=== PATIENT | female | born 1960 | race Caucasian/White ===

== ENCOUNTER → 2018-01-07 | Outpatient (CLI) | payer OTHER | END | disposition home or self-care (01) | LOC: RAD 17:18 | PROVIDERS: ATTEND Nurse Practitioner Family | DX: M79.605 Pain in left leg (principal); R60.0 Localized edema; M79.89 Other specified soft tissue disorders ==

== ENCOUNTER 2018-05-07 11:54 | Emergency (ER) | payer SELFPAY ==
[~2018-05-07] VITALS: Ht 167.6 cm; Wt 85.0 kg
[~2018-05-07 11:54] MED LIST: DICL50TA4 PO; ERGO500017 PO; ESTR0.5T PO; FURO20TA3 PO; IBUP-1222 PO; KETO10TA PO; LACT10SO5 PO; MEDR2.5T30 PO; MIRT30TA6 PO; MODA200T2 PO; MULT1TAB60 PO; ONDA4TAB10 PO; OXYC15TA PO; PANT40TA5 PO; PARO40TA3 PO; POTA10TA6 PO; ROPI0.5T PO; TIZA4CAP PO; TOPI50TA8 PO
[2018-05-07 12:37] LABS: BASOPHILS # (AUTO) 0.01 x10^3/uL (0-0.1); BASOPHILS % (AUTO) 0 % (0-1); EOSINOPHILS # (AUTO) 0.08 x10^3/uL (0-0.4); EOSINOPHILS % (AUTO) 2 % (1-7); LYMPHOCYTES # (AUTO) 1.58 x10^3/uL (1-3.4); LYMPHOCYTES % (AUTO) 29 % (22-44); MD NO; MEAN CORPUSCULAR HEMOGLOBIN 32.9 pg (27.0-34.8); MEAN CORPUSCULAR HGB CONC 32.9 g/dL (32.4-35.8); MEAN PLATELET VOLUME 7.8 fL (7.4-10.4); MONOCYTES # (AUTO) 0.41 x10^3/uL (0.2-0.8); MONOCYTES % (AUTO) 8 % (2-9); NEUTROPHILS # (AUTO) 3.32 x10^3/uL (1.8-6.8); NEUTROPHILS % (AUTO) 62 % (42-75); PLATELET COUNT 266 x10^3/uL (130-400); RED BLOOD COUNT 3.25 x10^6/uL (3.82-5.3); RED CELL DISTRIBUTION WIDTH 20.9 % (9.6-15.2)
[2018-05-07 12:43] LABS: INTERNATIONAL NORMALIZED RATIO 1.29 (0.93-1.1); PROTHROMBIN TIME 13.2 Seconds (9.6-11.5)
[2018-05-07 12:47] LABS: ALANINE AMINOTRANSFERASE 21 U/L (12-78); ALBUMIN 1.8 g/dL (3.4-5.0); ANION GAP 6 mmol/L (5-15); CALCIUM 7.6 mg/dL (8.5-10.1); CHLORIDE 102 mmol/L (98-107); CREATININE 0.85 mg/dL (0.55-1.02)
[2018-05-07 12:51] LABS: ALKALINE PHOSPHATASE 350 U/L (45-117); BILIRUBIN,TOTAL 0.9 mg/dL (0.2-1.0); TOTAL PROTEIN 6.2 g/dL (6.4-8.2)
[2018-05-07] MEDS ORDERED: LIDOCAINE 2%, 10ML ONE (15:38)
[2018-05-07 15:59] VITALS: BP 120/68
== END 2018-05-07 16:45 | disposition home or self-care (01) ==
LOC: ED 14:19
DX: B18.2 Chronic viral hepatitis C (principal); K70.31 Alcoholic cirrhosis of liver with ascites; K70.11 Alcoholic hepatitis with ascites; Z88.5 Allergy status to narcotic agent; Z88.6 Allergy status to analgesic agent
CPT/HCPCS: 36415; 49083; 80053; 83880; 85025; 85610; 88112; 93005; 99285; J3490

== ENCOUNTER → 2018-05-24 | Outpatient (CLI) | payer OTHER ==
[~2018-05-24] MED LIST changes: +LIDOCAINE-MPF 1%, 2ML ONE
== END | disposition home or self-care (01) ==
LOC: RAD 14:00
PROVIDERS: ATTEND Internal Medicine
DX: K70.31 Alcoholic cirrhosis of liver with ascites (principal); E11.9 Type 2 diabetes mellitus without complications; Z87.891 Personal history of nicotine dependence; Z88.6 Allergy status to analgesic agent; Z88.5 Allergy status to narcotic agent; Z86.19 Personal history of other infectious and parasitic diseases
CPT/HCPCS: 49083; J3490

== ENCOUNTER 2018-06-09 16:23 | Inpatient (IN) | payer OTHER ==
[~2018-06-09] VITALS: Ht 170.2 cm; Wt 60.1 kg
[~2018-06-09 16:23] MED LIST changes: -LIDOCAINE-MPF 1%, 2ML ONE
[2018-06-09] MEDS ORDERED: ZIPRASIDONE 20 MG INJ IM ONE ×2 (16:35→17:00)
[2018-06-09] MEDS ORDERED: LORazepam 2 MG/ML, 1ML ONE (17:14)
[2018-06-09] MEDS ORDERED: LORazepam 2 MG/ML, 1ML IVPush ONE (18:00)
[2018-06-09] MEDS ORDERED: SODIUM CHLORIDE FLUSH 10ML SYR IVF ONE (18:00)
[2018-06-09 18:11] LABS: BASOPHILS # (AUTO) 0.02 x10^3/uL (0-0.1); BASOPHILS % (AUTO) 0 % (0-1); EOSINOPHILS % (AUTO) 0 % (1-7); LYMPHOCYTES # (AUTO) 0.75 x10^3/uL (1-3.4); LYMPHOCYTES % (AUTO) 12 % (22-44); MD NO; MEAN CORPUSCULAR HEMOGLOBIN 31.8 pg (27.0-34.8); MEAN CORPUSCULAR HGB CONC 32.6 g/dL (32.4-35.8); MEAN CORPUSCULAR VOLUME 97.7 fL (80-100); MEAN PLATELET VOLUME 8.5 fL (7.4-10.4); MONOCYTES # (AUTO) 0.22 x10^3/uL (0.2-0.8); MONOCYTES % (AUTO) 4 % (2-9); NEUTROPHILS # (AUTO) 5.22 x10^3/uL (1.8-6.8); NEUTROPHILS % (AUTO) 84 % (42-75); PLATELET COUNT 187 x10^3/uL (130-400); RED CELL DISTRIBUTION WIDTH 16.6 % (9.6-15.2)
[2018-06-09 18:17] LABS: ALANINE AMINOTRANSFERASE 35 U/L (12-78); ALBUMIN 2.8 g/dL (3.4-5.0); ANION GAP 9 mmol/L (5-15); CALCIUM 7.9 mg/dL (8.5-10.1); CHLORIDE 115 mmol/L (98-107); CREATININE 0.88 mg/dL (0.55-1.02)
[2018-06-09 18:22] LABS: ALKALINE PHOSPHATASE 331 U/L (45-117); BILIRUBIN,TOTAL 1.9 mg/dL (0.2-1.0); TOTAL PROTEIN 7.4 g/dL (6.4-8.2); TROPONIN I < 0.015 ng/mL (0.000-0.045)
[2018-06-09 18:26] LABS: ACETAMINOPHEN < 2 mcg/mL (10-30); SALICYLATE LEVEL < 1.7 mg/dL (2.8-20.0)
[2018-06-09] MEDS: LACTULOSE 20 GM/30 ML UDC PO SCH ×2 (18:54→21:00)
[2018-06-09] MEDS ORDERED: POTASSIUM CHLORIDE 20 MEQ TAB.ER.PRT PO ONE (19:00)
[2018-06-09] MEDS ORDERED: PANT20TA3 PO (19:11)
[2018-06-09] MEDS ORDERED: TOPI50TA8 PO (19:11)
[2018-06-09] MEDS ORDERED: [UNRECOGNIZED DRUG - OTHER] PO (19:11)
[2018-06-09] MEDS ORDERED: ROPI1TAB2 PO (19:11)
[2018-06-09] MEDS ORDERED: POTA10TA6 PO (19:11)
[2018-06-09] MEDS ORDERED: FURO20TA3 PO (19:11)
[2018-06-09] MEDS ORDERED: MIRT30TA4 PO (19:11)
[2018-06-09] MEDS ORDERED: OXYC10TA6 PO (19:11)
[2018-06-09] MEDS ORDERED: PARO40TA3 PO (19:11)
[2018-06-09] MEDS ORDERED: TIZA4TAB PO (19:11)
[2018-06-09] MEDS ORDERED: MECL25TA4 PO (19:11)
[2018-06-09] MEDS ORDERED: PROM25TA10 PO (19:11)
[2018-06-09] MEDS ORDERED: [UNRECOGNIZED DRUG - CODE] PO (19:11)
[2018-06-09] MEDS ORDERED: MORPHINE ER PO (19:11)
[2018-06-09] MEDS ORDERED: LEDI1TAB PO (19:11)
[2018-06-09] MEDS ORDERED: SPIR100T2 PO (19:11)
[2018-06-09] MEDS ORDERED: MODA200T2 PO (19:11)
[2018-06-09] MEDS ORDERED: ESTR0.5T PO (19:11)
[2018-06-09] MEDS ORDERED: DICL75TA2 PO (19:11)
[2018-06-09 20:24] VITALS: BP 179/98
[2018-06-09] MEDS ORDERED: POLYETHYLENE GLYCOL 17 GM PACKET PO PRN (21:00)
[2018-06-09] MEDS ORDERED: ONDANSETRON ODT 4 MG PO PRN (21:00)
[2018-06-09] MEDS ORDERED: hydrALAzine 20 MG/ML, 1ML IVPush PRN (21:00)
[2018-06-09] MEDS ORDERED: BISACODYL 10 MG SUPP PR PRN (21:00)
[2018-06-09] MEDS ORDERED: ONDANSETRON 2MG/ML, 2ML IVPush PRN (21:00)
[2018-06-09] MEDS ORDERED: PROMETHAZINE 25 MG/ML, 1ML IM PRN (21:00)
[2018-06-09] MEDS: METRONIDAZOLE PMX 500MG/100ML 100 ML IV SCH (21:53)
[2018-06-09 22:19] LABS: FREE T4 (FREE THYROXINE) 1.19 ng/dL (0.76-1.46); THYROID STIMULATING HORMONE 1.64 mIU/L (0.358-3.740)
[2018-06-09 22:26] LABS: HEMOGLOBIN A1C 4.6 % (4.2-6.3)
[2018-06-10] VITALS (7 sets, daily range): BP systolic 148–161; BP diastolic 84–109
[2018-06-10] MEDS: CEFTRIAXONE 2 GM in SODIUM CHLORIDE 0.9% 50 ML IV SCH (01:03)
[2018-06-10] MEDS ORDERED: D5%-0.9% NACL+KCL 20MEQ 1,000 ML IV SCH (01:30)
[2018-06-10] MEDS ORDERED: LACTULOSE 3.3 GM/5 ML ORAL.SOL RC ONE (01:30)
[2018-06-10 04:58] LABS: BASOPHILS # (AUTO) 0.01 x10^3/uL (0-0.1); BASOPHILS % (AUTO) 0 % (0-1); EOSINOPHILS % (AUTO) 0 % (1-7); LYMPHOCYTES # (AUTO) 1.45 x10^3/uL (1-3.4); LYMPHOCYTES % (AUTO) 17 % (22-44); MD NO; MEAN CORPUSCULAR HGB CONC 32.4 g/dL (32.4-35.8); MEAN CORPUSCULAR VOLUME 98.8 fL (80-100); MEAN PLATELET VOLUME 8.9 fL (7.4-10.4); MONOCYTES # (AUTO) 0.25 x10^3/uL (0.2-0.8); MONOCYTES % (AUTO) 3 % (2-9); NEUTROPHILS # (AUTO) 6.89 x10^3/uL (1.8-6.8); NEUTROPHILS % (AUTO) 80 % (42-75); PLATELET COUNT 158 x10^3/uL (130-400); RED BLOOD COUNT 3.97 x10^6/uL (3.82-5.3); RED CELL DISTRIBUTION WIDTH 16.9 % (9.6-15.2)
[2018-06-10 05:22] LABS: ALANINE AMINOTRANSFERASE 35 U/L (12-78); ALBUMIN 2.7 g/dL (3.4-5.0); ANION GAP 8 mmol/L (5-15); CALCIUM 8.3 mg/dL (8.5-10.1); CHLORIDE 113 mmol/L (98-107)
[2018-06-10 05:25] LABS: ALKALINE PHOSPHATASE 306 U/L (45-117); BILIRUBIN,TOTAL 1.4 mg/dL (0.2-1.0); CHOL/HDL RATIO 3.7; CHOLESTEROL, TOTAL 146 mg/dL (140-239); CREATININE 0.88 mg/dL (0.55-1.02); HDL CHOL % 27 % (28-40); HDL CHOLESTEROL (DIRECT) 39 mg/dL (40-60); INTERNATIONAL NORMALIZED RATIO 1.27 (0.93-1.1); LDL CHOLESTEROL,CALCULATED 95 mg/dL (54-169); LDL/HDL RATIO 2.4 (0.5-3.0); PROTHROMBIN TIME 13.1 Seconds (9.6-11.5); TOTAL PROTEIN 7.6 g/dL (6.4-8.2); TRIGLYCERIDES 62 mg/dL (50-200); VLDL CHOLESTEROL 12 mg/dL (0-25)
[2018-06-10] MEDS: METRONIDAZOLE PMX 500MG/100ML 100 ML IV SCH ×2 (06:34→16:27)
[2018-06-10 06:43] LABS: MICROSCOPIC NOT IND
[2018-06-10 06:45] LABS: CULTURE INDICATED? NO
[2018-06-10 06:57] LABS: AMPHETAMINE SCREEN, URINE Negative (Negative); BARBITURATE SCREEN, URINE Negative (Negative); BENZODIAZEPINE SCREEN, URINE Positive (Negative); CANNABINOID SCREEN, URINE Positive (Negative); COCAINE SCREEN, URINE Negative (Negative); METHADONE SCREEN, URINE Negative (Negative); OPIATE SCREEN, URINE Positive (Negative)
[2018-06-10] MEDS: LACTULOSE 20 GM/30 ML UDC PO SCH ×2 (09:00→18:06)
[2018-06-10] MEDS: LACTULOSE 3.3 GM/5 ML ORAL.SOL RC SCH (09:30)
[2018-06-10] MEDS ORDERED: FLUMAZENIL 0.1 MG/1 ML, 5ML ONE (15:09)
[2018-06-10] MEDS ORDERED: NALOXONE 1 MG/ML, 2ML ONE (15:09)
[2018-06-10] MEDS ORDERED: MIDAZOLAM 1 MG/ML, 5ML ONE (15:09)
[2018-06-10] MEDS ORDERED: FENTANYL PF 100 MCG/2ML ONE (15:09)
[2018-06-10] MEDS ORDERED: GADOBUTROL 7.5 MMOL/7.5 ML PFS ONE (15:35)
[2018-06-10] MEDS: morphine SULFATE 10 MG/ML, 1ML IVPush PRN (19:51)
[2018-06-10] MEDS ORDERED: LABETALOL 5MG/ML, 20ML IVPush PRN (22:00)
[2018-06-11] MEDS: CEFTRIAXONE 2 GM in SODIUM CHLORIDE 0.9% 50 ML IV SCH (01:21)
[2018-06-11] MEDS: METRONIDAZOLE PMX 500MG/100ML 100 ML IV SCH ×2 (01:54→08:28)
[2018-06-11 03:12] VITALS: BP 159/99
[2018-06-11] MEDS: morphine SULFATE 10 MG/ML, 1ML IVPush PRN ×6 (04:20→21:42)
[2018-06-11 04:57] LABS: BASOPHILS # (AUTO) 0.02 x10^3/uL (0-0.1); BASOPHILS % (AUTO) 0 % (0-1); EOSINOPHILS # (AUTO) 0.01 x10^3/uL (0-0.4); EOSINOPHILS % (AUTO) 0 % (1-7); LYMPHOCYTES # (AUTO) 1.48 x10^3/uL (1-3.4); LYMPHOCYTES % (AUTO) 22 % (22-44); MD NO; MEAN CORPUSCULAR HEMOGLOBIN 31.3 pg (27.0-34.8); MEAN CORPUSCULAR HGB CONC 31.8 g/dL (32.4-35.8); MEAN CORPUSCULAR VOLUME 98.3 fL (80-100); MEAN PLATELET VOLUME 8.3 fL (7.4-10.4); MONOCYTES # (AUTO) 0.35 x10^3/uL (0.2-0.8); MONOCYTES % (AUTO) 5 % (2-9); NEUTROPHILS # (AUTO) 5.05 x10^3/uL (1.8-6.8); NEUTROPHILS % (AUTO) 73 % (42-75); PLATELET COUNT 158 x10^3/uL (130-400); RED BLOOD COUNT 3.47 x10^6/uL (3.82-5.3); RED CELL DISTRIBUTION WIDTH 16.2 % (9.6-15.2)
[2018-06-11 05:06] LABS: ALBUMIN 2.3 g/dL (3.4-5.0); ANION GAP 10 mmol/L (5-15); CHLORIDE 117 mmol/L (98-107)
[2018-06-11 05:10] LABS: ALANINE AMINOTRANSFERASE 28 U/L (12-78); ALKALINE PHOSPHATASE 256 U/L (45-117); BILIRUBIN,TOTAL 1.5 mg/dL (0.2-1.0); CREATININE 0.63 mg/dL (0.55-1.02); TOTAL PROTEIN 6.6 g/dL (6.4-8.2)
[2018-06-11] MEDS ORDERED: POTASSIUM CHLORIDE 20 MEQ in SODIUM CHLORIDE 0.9% 250 ML IV ONE (07:00)
[2018-06-11] MEDS: LACTULOSE 20 GM/30 ML UDC PO SCH (08:27)
[2018-06-11 08:36] VITALS: BP 149/95
[2018-06-11 08:38] VITALS: BP 149/95
[2018-06-11] MEDS: LACTULOSE 3.3 GM/5 ML ORAL.SOL RC SCH (08:40)
[2018-06-11 14:27] VITALS: BP 150/90
[2018-06-11] MEDS: POTASSIUM CHLORIDE 20 MEQ TAB.ER.PRT PO SCH (18:24)
[2018-06-11 19:11] VITALS: BP 147/96
[2018-06-11] MEDS: D5%-0.45NACL+KCL 20MEQ 1,000 ML IV SCH (21:42)
[2018-06-11] MEDS: RIBAVIRIN 600 MG HOMEMEDPO SCH (21:43)
[2018-06-12] MEDS: morphine SULFATE 10 MG/ML, 1ML IVPush PRN ×2 (01:14→04:26)
[2018-06-12 01:27] VITALS: BP 147/100
[2018-06-12 05:20] LABS: ALBUMIN 2.1 g/dL (3.4-5.0); ANION GAP 7 mmol/L (5-15); CALCIUM 7.5 mg/dL (8.5-10.1); CHLORIDE 114 mmol/L (98-107)
[2018-06-12 05:24] LABS: ALANINE AMINOTRANSFERASE 25 U/L (12-78); ALKALINE PHOSPHATASE 233 U/L (45-117); BILIRUBIN,TOTAL 2.4 mg/dL (0.2-1.0); TOTAL PROTEIN 6.2 g/dL (6.4-8.2)
[2018-06-12 05:35] LABS: BASOPHILS # (AUTO) 0.03 x10^3/uL (0-0.1); BASOPHILS % (AUTO) 0 % (0-1); EOSINOPHILS # (AUTO) 0.14 x10^3/uL (0-0.4); EOSINOPHILS % (AUTO) 2 % (1-7); LYMPHOCYTES # (AUTO) 1.64 x10^3/uL (1-3.4); LYMPHOCYTES % (AUTO) 20 % (22-44); MD NO; MEAN CORPUSCULAR HEMOGLOBIN 32.3 pg (27.0-34.8); MEAN CORPUSCULAR HGB CONC 32.4 g/dL (32.4-35.8); MEAN CORPUSCULAR VOLUME 99.7 fL (80-100); MEAN PLATELET VOLUME 8.1 fL (7.4-10.4); MONOCYTES # (AUTO) 0.47 x10^3/uL (0.2-0.8); MONOCYTES % (AUTO) 6 % (2-9); NEUTROPHILS % (AUTO) 73 % (42-75); PLATELET COUNT 163 x10^3/uL (130-400); RED BLOOD COUNT 3.35 x10^6/uL (3.82-5.3); RED CELL DISTRIBUTION WIDTH 16.9 % (9.6-15.2)
[2018-06-12 06:40] VITALS: BP 151/103
[2018-06-12] MEDS ORDERED: LACT20SO13 PO (08:17)
[2018-06-12] MEDS: POTASSIUM CHLORIDE 20 MEQ TAB.ER.PRT PO SCH (08:37)
[2018-06-12] MEDS: LACTULOSE 20 GM/30 ML UDC PO SCH (08:40)
[2018-06-12] MEDS: RIBAVIRIN 600 MG HOMEMEDPO SCH (08:42)
[2018-06-12] MEDS: D5%-0.45NACL+KCL 20MEQ 1,000 ML IV SCH (08:43)
[2018-06-12] MEDS: LACTULOSE 3.3 GM/5 ML ORAL.SOL RC SCH (08:43)
[2018-06-12] MEDS ORDERED: SOFOSBUVIR HOMEMEDPO SCH (09:00)
[2018-06-12] MEDS ORDERED: LEDIPASVIR HOMEMEDPO SCH (09:00)
== END 2018-06-12 09:55 | disposition home or self-care (01) | DRG 441 ==
LOC: ED 17:54 → EDIP 18:56 → 3NE 19:55
PROVIDERS: ADMIT Internal Medicine; ATTEND Internal Medicine
PROC: 0T9B70Z Drainage of Bladder with Drainage Device, Via Natural or Artificial Opening (ICD-10-PCS; principal; 2018-06-10)
DX: K72.00 Acute and subacute hepatic failure without coma (principal); E43 Unspecified severe protein-calorie malnutrition; K65.2 Spontaneous bacterial peritonitis; E87.2 Acidosis; B18.2 Chronic viral hepatitis C; E11.9 Type 2 diabetes mellitus without complications; E55.9 Vitamin D deficiency, unspecified; E86.0 Dehydration; E87.6 Hypokalemia; F12.90 Cannabis use, unspecified, uncomplicated; F17.210 Nicotine dependence, cigarettes, uncomplicated; F41.9 Anxiety disorder, unspecified; G25.81 Restless legs syndrome; K21.9 Gastro-esophageal reflux disease without esophagitis; G47.30 Sleep apnea, unspecified; G89.29 Other chronic pain; K74.60 Unspecified cirrhosis of liver; S22.31XD Fracture of one rib, right side, subsequent encounter for fracture with routine healing; Y92.410 Unspecified street and highway as the place of occurrence of the external cause; V89.2XXD Person injured in unspecified motor-vehicle accident, traffic, subsequent encounter; Z82.49 Family history of ischemic heart disease and other diseases of the circulatory system; Z83.3 Family history of diabetes mellitus; Z84.1 Family history of disorders of kidney and ureter; Z68.20 Body mass index [BMI] 20.0-20.9, adult
CPT/HCPCS: 36415; 70450; 70553; 71045; 80053; 80061; 80307; 80329; 81003; 82140; 82962; 83036; 83605; 83735; 84439; 84443; 84484; 85025; 85610; 87040; 93005; 96372; 96374; A9585; J0696; J2250; J3010; J3480; J3486; G0480; J2060; J2270; J2310; J7050

== ENCOUNTER → 2018-06-30 | Outpatient (CLI) | payer OTHER ==
[~2018-06-30] MED LIST changes: +DICL75TA2 PO; +LACT20SO13 PO; +LEDI1TAB PO; +MECL25TA4 PO; +MIRT30TA4 PO; +MORPHINE ER PO; +OXYC10TA6 PO; +PANT20TA3 PO; +PROM25TA10 PO; +ROPI1TAB2 PO; +SPIR100T4 PO; +TIZA4TAB PO; +[UNRECOGNIZED DRUG - CODE] PO; +[UNRECOGNIZED DRUG - OTHER] PO
== END | disposition home or self-care (01) ==
LOC: RAD 13:50
PROVIDERS: ATTEND Radiology Diagnostic Radiology
DX: S32.010S Wedge compression fracture of first lumbar vertebra, sequela (principal)

== ENCOUNTER → 2018-07-18 | Outpatient (CLI) | payer OTHER ==
[~2018-07-18] MED LIST changes: +LIDOCAINE-MPF 2%, 2ML ONE
== END | disposition home or self-care (01) ==
LOC: RAD 14:00
PROVIDERS: ATTEND Internal Medicine
DX: K74.60 Unspecified cirrhosis of liver (principal); R18.8 Other ascites; E11.9 Type 2 diabetes mellitus without complications
CPT/HCPCS: 49083; J3490

== ENCOUNTER 2018-08-18 09:08 | Day surgery (SDC) | payer OTHER ==
[~2018-08-18 09:08] MED LIST changes: -LIDOCAINE-MPF 2%, 2ML ONE
[2018-08-18 09:51] VITALS: BP 108/72
[2018-08-18] MEDS ORDERED: SODIUM CHLORIDE 0.9% 1,000 ML IV SCH (09:57)
[2018-08-18] MEDS ORDERED: CEFAZOLIN 1,000 MG in SODIUM CHLORIDE 0.9% 50 ML IV SCH (10:00)
[2018-08-18] MEDS ORDERED: CEFAZOLIN PMX 1GM/50ML 50 ML ONE (10:01)
[2018-08-18] MEDS ORDERED: PLEASE ENTER HEIGHT AND WEIGHT MC SCH (10:30)
[2018-08-18] MEDS ORDERED: MIDAZOLAM 1 MG/ML, 5ML ONE ×2 (11:16→13:22)
[2018-08-18] MEDS ORDERED: FLUMAZENIL 0.1 MG/1 ML, 5ML ONE (11:16)
[2018-08-18] MEDS ORDERED: NALOXONE 1 MG/ML, 2ML ONE (11:16)
[2018-08-18] MEDS ORDERED: FENTANYL PF 100 MCG/2ML ONE ×3 (11:16→13:22)
[2018-08-18] MEDS ORDERED: LIDOCAINE-MPF 2%, 2ML ONE ×2 (11:56→12:37)
== END 2018-08-18 16:20 | disposition home or self-care (01) ==
LOC: OUT 09:08
PROVIDERS: ATTEND Physician Assistant Surgical
DX: M80.88XS Other osteoporosis with current pathological fracture, vertebra(e), sequela (principal); Z86.19 Personal history of other infectious and parasitic diseases; Z88.5 Allergy status to narcotic agent
CPT/HCPCS: 0201T; 72110; 99156; 99157; J2250; J3010; J3490; J2310

== ENCOUNTER 2018-11-21 22:36 | Inpatient (IN) | payer OTHER ==
[~2018-11-21] VITALS: Ht 167.6 cm; Wt 63.1 kg
[~2018-11-21 22:36] MED LIST changes: -DICL75TA2 PO; +DICL75TA3 PO
--- NOTE | 2018-11-21 22:56 | NUR ---
PT HERE FOR INCREASING ALTERED MENTAL STATUS. PER FAMILY PTS CONFUSION HAS GOTTEN WORSE OVER LAST FEW DAYS. PT AAO TO SELF. PT FOLLOWS COMMANDS. VSS. PT DENIES PAIN. FAMILY AT BEDSIDE. CALL LIGHT IN REACH
[2018-11-21 23:03] LABS: BASOPHILS # (AUTO) 0.01 x10^3/uL (0-0.1); BASOPHILS % (AUTO) 0 % (0-1); EOSINOPHILS # (AUTO) 0.12 x10^3/uL (0-0.4); EOSINOPHILS % (AUTO) 2 % (1-7); LYMPHOCYTES # (AUTO) 1.19 x10^3/uL (1-3.4); LYMPHOCYTES % (AUTO) 17 % (22-44); MD NO; MEAN CORPUSCULAR HEMOGLOBIN 28.2 pg (27.0-34.8); MEAN CORPUSCULAR HGB CONC 32.7 g/dL (32.4-35.8); MEAN CORPUSCULAR VOLUME 86.3 fL (80-100); MEAN PLATELET VOLUME 8.6 fL (7.4-10.4); MONOCYTES # (AUTO) 0.34 x10^3/uL (0.2-0.8); MONOCYTES % (AUTO) 5 % (2-9); NEUTROPHILS # (AUTO) 5.28 x10^3/uL (1.8-6.8); NEUTROPHILS % (AUTO) 76 % (42-75); PLATELET COUNT 156 x10^3/uL (130-400); RED BLOOD COUNT 3.86 x10^6/uL (3.82-5.3); RED CELL DISTRIBUTION WIDTH 18.9 % (9.6-15.2)
--- NOTE | 2018-11-21 23:14 | NUR ---
PT TO CT
[2018-11-21 23:16] LABS: ALANINE AMINOTRANSFERASE 56 U/L (12-78); ALBUMIN 3.1 g/dL (3.4-5.0); ANION GAP 9 mmol/L (5-15); CALCIUM 8.6 mg/dL (8.5-10.1); CHLORIDE 112 mmol/L (98-107); CREATININE 1.28 mg/dL (0.55-1.02)
[2018-11-21 23:20] LABS: ALKALINE PHOSPHATASE 291 U/L (45-117); BILIRUBIN,TOTAL 1.4 mg/dL (0.2-1.0); TOTAL PROTEIN 7.2 g/dL (6.4-8.2); TROPONIN I < 0.015 ng/mL (0.000-0.045)
[2018-11-21 23:21] LABS: ACETAMINOPHEN < 2 mcg/mL (10-30); SALICYLATE LEVEL < 1.7 mg/dL (2.8-20.0)
--- NOTE | 2018-11-21 23:43 | NUR ---
MINI CATH PERFORMED. PT TOLERATED WELL. PT ALSO PASSED DYSPHASIA SCREENING. VSS. FAMILY AT BEDSIDE. CALL LIGHT IN REACH
[2018-11-21 23:50] LABS: MICROSCOPIC AUTO
[2018-11-21 23:51] LABS: CULTURE INDICATED? YES
[2018-11-21] MEDS ORDERED: ZALE10CA PO (23:54)
[2018-11-21] MEDS ORDERED: ZOLP10TA5 PO (23:54)
[2018-11-21] MEDS ORDERED: OXYC5TAB3 PO (23:54)
[2018-11-22] MEDS ORDERED: LACTULOSE 20 GM/30 ML UDC PO ONE
[2018-11-22 00:14] LABS: INTERNATIONAL NORMALIZED RATIO 1.14 (0.93-1.1)
--- NOTE | 2018-11-22 00:35 | NUR ---
ADMITTING MD AT BEDSIDE
[2018-11-22] MEDS ORDERED: ONDANSETRON ODT 4 MG PO PRN (01:00)
[2018-11-22 01:24] VITALS: BP 183/103
[2018-11-22] MEDS ORDERED: OXYcodone IR 5MG TABLET PO PRN (01:30)
[2018-11-22] MEDS: hydrALAzine 20 MG/ML, 1ML IVPush PRN (01:57)
[2018-11-22] MEDS: LACTULOSE 10 GM/15 ML UDC PO SCH ×5 (02:04→20:54)
[2018-11-22 02:15] VITALS: BP 156/109
[2018-11-22 07:26] VITALS: BP 177/121
[2018-11-22 08:42] LABS: BASOPHILS # (AUTO) 0.02 x10^3/uL (0-0.1); BASOPHILS % (AUTO) 0 % (0-1); EOSINOPHILS # (AUTO) 0.02 x10^3/uL (0-0.4); EOSINOPHILS % (AUTO) 0 % (1-7); LYMPHOCYTES # (AUTO) 1.36 x10^3/uL (1-3.4); LYMPHOCYTES % (AUTO) 30 % (22-44); MD NO; MEAN CORPUSCULAR HEMOGLOBIN 27.5 pg (27.0-34.8); MEAN CORPUSCULAR HGB CONC 32.1 g/dL (32.4-35.8); MEAN CORPUSCULAR VOLUME 85.5 fL (80-100); MEAN PLATELET VOLUME 8.5 fL (7.4-10.4); MONOCYTES # (AUTO) 0.32 x10^3/uL (0.2-0.8); MONOCYTES % (AUTO) 7 % (2-9); NEUTROPHILS # (AUTO) 2.91 x10^3/uL (1.8-6.8); NEUTROPHILS % (AUTO) 63 % (42-75); PLATELET COUNT 166 x10^3/uL (130-400); RED CELL DISTRIBUTION WIDTH 18.9 % (9.6-15.2)
[2018-11-22 08:46] LABS: ALANINE AMINOTRANSFERASE 58 U/L (12-78); ALBUMIN 3.3 g/dL (3.4-5.0); ANION GAP 10 mmol/L (5-15); CALCIUM 8.8 mg/dL (8.5-10.1); CHLORIDE 114 mmol/L (98-107); CREATININE 1.13 mg/dL (0.55-1.02)
[2018-11-22 08:49] LABS: ALKALINE PHOSPHATASE 296 U/L (45-117); BILIRUBIN,TOTAL 1.3 mg/dL (0.2-1.0); TOTAL PROTEIN 7.3 g/dL (6.4-8.2)
[2018-11-22] MEDS: PANTOPROZOLE 40MG TABLET PO SCH (09:38)
[2018-11-22] MEDS: TOPIRAMATE 25 MG TABLET PO SCH (09:42)
[2018-11-22] MEDS: MULTIVITAMIN 1 TABLET PO SCH (09:42)
[2018-11-22] MEDS: POTASSIUM CHLORIDE 10 MEQ TABLET.ER PO SCH ×2 (09:42→20:54)
[2018-11-22] MEDS: PAROXETINE 20 MG TABLET PO SCH (09:42)
[2018-11-22] MEDS: FUROSEMIDE 40 MG TABLET PO SCH (09:42)
[2018-11-22] MEDS: SPIRONOLACTONE 100 MG TABLET PO SCH (09:42)
[2018-11-22] MEDS: MECLIZINE CHEWABLE 25 MG TAB PO SCH ×3 (09:50→20:54)
[2018-11-22] MEDS: MIRTAZAPINE 30 MG TAB.RAPDIS PO SCH (09:50)
[2018-11-22] MEDS: DICLOFENAC SODIUM 75 MG TABLET.DR PO SCH ×2 (09:50→20:54)
[2018-11-22] MEDS: ESTRADIOL 0.5 MG TABLET PO SCH (10:45)
[2018-11-22] MEDS: MODAFINIL 100 MG TABLET PO SCH (10:45)
[2018-11-22] MEDS: MEDROXYPROGESTERONE ACETATE 2.5 MG TABLET PO SCH (10:45)
[2018-11-22] MEDS ORDERED: D5%-0.45% NACL 1,000 ML IV SCH (12:09)
[2018-11-22 12:51] VITALS: BP 147/91
[2018-11-22 18:45] VITALS: BP 155/80
[2018-11-23 00:17] VITALS: BP 153/98
[2018-11-23] MEDS: LACTULOSE 10 GM/15 ML UDC PO SCH ×2 (05:40→11:15)
[2018-11-23] MEDS: PANTOPROZOLE 40MG TABLET PO SCH (05:40)
[2018-11-23 06:34] VITALS: BP 158/102
[2018-11-23 08:37] LABS: ALANINE AMINOTRANSFERASE 52 U/L (12-78); ALBUMIN 3.6 g/dL (3.4-5.0); ANION GAP 11 mmol/L (5-15); CALCIUM 9.1 mg/dL (8.5-10.1); CHLORIDE 114 mmol/L (98-107)
[2018-11-23 08:39] LABS: ALKALINE PHOSPHATASE 271 U/L (45-117); BILIRUBIN,TOTAL 1.4 mg/dL (0.2-1.0); TOTAL PROTEIN 7.9 g/dL (6.4-8.2)
[2018-11-23 08:53] LABS: BASOPHILS # (AUTO) 0.03 x10^3/uL (0-0.1); BASOPHILS % (AUTO) 0 % (0-1); EOSINOPHILS # (AUTO) 0.02 x10^3/uL (0-0.4); EOSINOPHILS % (AUTO) 0 % (1-7); LYMPHOCYTES # (AUTO) 2.36 x10^3/uL (1-3.4); LYMPHOCYTES % (AUTO) 30 % (22-44); MD NO; MEAN CORPUSCULAR HEMOGLOBIN 27.7 pg (27.0-34.8); MEAN CORPUSCULAR HGB CONC 32.6 g/dL (32.4-35.8); MEAN CORPUSCULAR VOLUME 85.2 fL (80-100); MEAN PLATELET VOLUME 8.6 fL (7.4-10.4); MONOCYTES # (AUTO) 0.71 x10^3/uL (0.2-0.8); MONOCYTES % (AUTO) 9 % (2-9); NEUTROPHILS # (AUTO) 4.75 x10^3/uL (1.8-6.8); NEUTROPHILS % (AUTO) 60 % (42-75); PLATELET COUNT 188 x10^3/uL (130-400); RED BLOOD COUNT 4.21 x10^6/uL (3.82-5.3); RED CELL DISTRIBUTION WIDTH 18.8 % (9.6-15.2)
[2018-11-23] MEDS: SPIRONOLACTONE 100 MG TABLET PO SCH (09:24)
[2018-11-23] MEDS: ESTRADIOL 0.5 MG TABLET PO SCH (09:25)
[2018-11-23] MEDS: FUROSEMIDE 40 MG TABLET PO SCH (09:26)
[2018-11-23] MEDS: MEDROXYPROGESTERONE ACETATE 2.5 MG TABLET PO SCH (09:26)
[2018-11-23] MEDS: MULTIVITAMIN 1 TABLET PO SCH (09:26)
[2018-11-23] MEDS: POTASSIUM CHLORIDE 10 MEQ TABLET.ER PO SCH (09:26)
[2018-11-23] MEDS: PAROXETINE 20 MG TABLET PO SCH (09:26)
[2018-11-23] MEDS: MIRTAZAPINE 30 MG TAB.RAPDIS PO SCH (09:27)
[2018-11-23] MEDS: MODAFINIL 100 MG TABLET PO SCH (09:27)
[2018-11-23] MEDS: TOPIRAMATE 25 MG TABLET PO SCH (09:28)
[2018-11-23] MEDS: DICLOFENAC SODIUM 75 MG TABLET.DR PO SCH ×2 (09:28→20:54)
[2018-11-23] MEDS: MECLIZINE CHEWABLE 25 MG TAB PO SCH (10:19)
[2018-11-23 13:26] VITALS: BP 172/110
[2018-11-23] MEDS ORDERED: MECLIZINE CHEWABLE 25 MG TAB PO PRN (14:00)
[2018-11-23] MEDS ORDERED: LACTATED RINGERS 1,000 ML IV SCH (14:00)
[2018-11-23] MEDS ORDERED: MAGNESIUM SULFATE PMX 2GM/50ML 50 ML IV ONE (14:00)
[2018-11-23] MEDS ORDERED: LACTULOSE 10 GM/15 ML UDC PO SCH (16:00)
[2018-11-23] MEDS: POTASSIUM CHLORIDE 20 MEQ TAB.ER.PRT PO SCH (16:30)
[2018-11-23] MEDS: hydrALAzine 20 MG/ML, 1ML IVPush PRN (16:32)
[2018-11-23 17:24] VITALS: BP 184/114
[2018-11-23] MEDS: METOPROLOL TARTRATE 25 MG TABLET PO SCH (18:04)
[2018-11-23 18:06] VITALS: BP 159/108
[2018-11-23 18:49] VITALS: BP 157/100
[2018-11-24 02:25] VITALS: BP 123/87
[2018-11-24 05:23] LABS: ALBUMIN 2.8 g/dL (3.4-5.0); ANION GAP 9 mmol/L (5-15); CALCIUM 8.5 mg/dL (8.5-10.1); CHLORIDE 119 mmol/L (98-107)
[2018-11-24 05:27] LABS: ALANINE AMINOTRANSFERASE 41 U/L (12-78); ALKALINE PHOSPHATASE 207 U/L (45-117); BILIRUBIN,TOTAL 1.5 mg/dL (0.2-1.0); CREATININE 0.83 mg/dL (0.55-1.02); TOTAL PROTEIN 6.3 g/dL (6.4-8.2)
[2018-11-24] MEDS: PANTOPROZOLE 40MG TABLET PO SCH (05:55)
[2018-11-24] MEDS: METOPROLOL TARTRATE 25 MG TABLET PO SCH ×2 (05:55→17:49)
[2018-11-24 06:25] VITALS: BP 139/93
[2018-11-24] MEDS: TOPIRAMATE 25 MG TABLET PO SCH (08:08)
[2018-11-24] MEDS: MODAFINIL 100 MG TABLET PO SCH (08:08)
[2018-11-24] MEDS: FUROSEMIDE 40 MG TABLET PO SCH (08:08)
[2018-11-24] MEDS: DICLOFENAC SODIUM 75 MG TABLET.DR PO SCH ×2 (08:08→21:04)
[2018-11-24] MEDS: MIRTAZAPINE 30 MG TAB.RAPDIS PO SCH (08:08)
[2018-11-24] MEDS: MEDROXYPROGESTERONE ACETATE 2.5 MG TABLET PO SCH (08:08)
[2018-11-24] MEDS: POTASSIUM CHLORIDE 20 MEQ TAB.ER.PRT PO SCH (08:09)
[2018-11-24] MEDS: SPIRONOLACTONE 100 MG TABLET PO SCH (08:09)
[2018-11-24] MEDS: ESTRADIOL 0.5 MG TABLET PO SCH (08:09)
[2018-11-24] MEDS: PAROXETINE 20 MG TABLET PO SCH (08:09)
[2018-11-24] MEDS: MULTIVITAMIN 1 TABLET PO SCH (08:09)
[2018-11-24] MEDS ORDERED: MAGNESIUM SULFATE PMX 4GM/100M 100 ML IV ONE (10:00)
[2018-11-24 13:04] VITALS: BP 134/82
[2018-11-24 19:27] VITALS: BP 123/83
[2018-11-24 23:26] VITALS: BP 121/78
[2018-11-25 04:32] VITALS: BP 120/71
[2018-11-25] MEDS: PANTOPROZOLE 40MG TABLET PO SCH (05:34)
[2018-11-25] MEDS: METOPROLOL TARTRATE 25 MG TABLET PO SCH ×2 (05:34→17:04)
[2018-11-25 05:57] LABS: ANION GAP 6 mmol/L (5-15); CALCIUM 7.9 mg/dL (8.5-10.1); CHLORIDE 114 mmol/L (98-107)
[2018-11-25 07:40] VITALS: BP 108/76
[2018-11-25] MEDS: MEDROXYPROGESTERONE ACETATE 2.5 MG TABLET PO SCH (08:28)
[2018-11-25] MEDS: DICLOFENAC SODIUM 75 MG TABLET.DR PO SCH ×2 (08:29→20:19)
[2018-11-25] MEDS: PAROXETINE 20 MG TABLET PO SCH (08:29)
[2018-11-25] MEDS: FUROSEMIDE 40 MG TABLET PO SCH (08:29)
[2018-11-25] MEDS: TOPIRAMATE 25 MG TABLET PO SCH (08:29)
[2018-11-25] MEDS: ESTRADIOL 0.5 MG TABLET PO SCH (08:30)
[2018-11-25] MEDS: MULTIVITAMIN 1 TABLET PO SCH (08:30)
[2018-11-25] MEDS: SPIRONOLACTONE 100 MG TABLET PO SCH (08:30)
[2018-11-25] MEDS: MODAFINIL 100 MG TABLET PO SCH (08:31)
[2018-11-25] MEDS: MIRTAZAPINE 30 MG TAB.RAPDIS PO SCH (08:31)
[2018-11-25] MEDS ORDERED: LACTULOSE 20 GM/30 ML UDC PO SCH (09:00)
[2018-11-25] MEDS: LACTATED RINGERS 1,000 ML IV SCH ×2 (13:11→21:16)
[2018-11-25 13:51] VITALS: BP 123/76
[2018-11-25 18:15] VITALS: BP 105/60
[2018-11-26 00:58] VITALS: BP 121/77
[2018-11-26] MEDS: LACTATED RINGERS 1,000 ML IV SCH ×3 (05:11→21:47)
[2018-11-26] MEDS: PANTOPROZOLE 40MG TABLET PO SCH (05:12)
[2018-11-26] MEDS: METOPROLOL TARTRATE 25 MG TABLET PO SCH ×2 (05:14→17:36)
[2018-11-26 05:59] LABS: CHLORIDE 112 mmol/L (98-107)
[2018-11-26 06:52] LABS: ALANINE AMINOTRANSFERASE 36 U/L (12-78); ALBUMIN 2.8 g/dL (3.4-5.0); ALKALINE PHOSPHATASE 221 U/L (45-117); ANION GAP 9 mmol/L (5-15); CALCIUM 8.6 mg/dL (8.5-10.1); CREATININE 0.96 mg/dL (0.55-1.02); TOTAL PROTEIN 6.4 g/dL (6.4-8.2)
[2018-11-26] MEDS: ESTRADIOL 0.5 MG TABLET PO SCH (09:00)
[2018-11-26] MEDS: MEDROXYPROGESTERONE ACETATE 2.5 MG TABLET PO SCH (09:23)
[2018-11-26] MEDS: LACTULOSE 20 GM/30 ML UDC PO SCH (09:23)
[2018-11-26] MEDS: RIFAXIMIN 550 MG TABLET PO SCH ×2 (09:24→19:44)
[2018-11-26] MEDS: MULTIVITAMIN 1 TABLET PO SCH (09:24)
[2018-11-26] MEDS: TOPIRAMATE 25 MG TABLET PO SCH (09:24)
[2018-11-26 09:47] VITALS: BP 137/89
[2018-11-26 13:05] VITALS: BP 127/84
[2018-11-26 18:17] VITALS: BP 130/83
[2018-11-27 02:04] VITALS: BP 121/81
[2018-11-27] MEDS: PANTOPROZOLE 40MG TABLET PO SCH (05:14)
[2018-11-27] MEDS: METOPROLOL TARTRATE 25 MG TABLET PO SCH ×2 (05:15→16:23)
[2018-11-27] MEDS: LACTATED RINGERS 1,000 ML IV SCH ×2 (05:16→13:00)
[2018-11-27 05:42] LABS: BASOPHILS # (AUTO) 0.02 x10^3/uL (0-0.1); BASOPHILS % (AUTO) 0 % (0-1); EOSINOPHILS # (AUTO) 0.15 x10^3/uL (0-0.4); EOSINOPHILS % (AUTO) 3 % (1-7); LYMPHOCYTES # (AUTO) 1.92 x10^3/uL (1-3.4); LYMPHOCYTES % (AUTO) 32 % (22-44); MD NO; MEAN CORPUSCULAR HEMOGLOBIN 28.4 pg (27.0-34.8); MEAN CORPUSCULAR VOLUME 85.9 fL (80-100); MEAN PLATELET VOLUME 9.4 fL (7.4-10.4); MONOCYTES # (AUTO) 0.47 x10^3/uL (0.2-0.8); MONOCYTES % (AUTO) 8 % (2-9); NEUTROPHILS # (AUTO) 3.47 x10^3/uL (1.8-6.8); NEUTROPHILS % (AUTO) 58 % (42-75); PLATELET COUNT 173 x10^3/uL (130-400); RED BLOOD COUNT 3.75 x10^6/uL (3.82-5.3); RED CELL DISTRIBUTION WIDTH 18.7 % (9.6-15.2)
[2018-11-27 05:53] LABS: CHLORIDE 114 mmol/L (98-107)
[2018-11-27 06:29] LABS: ALANINE AMINOTRANSFERASE 35 U/L (12-78); ALBUMIN 2.7 g/dL (3.4-5.0); ALKALINE PHOSPHATASE 224 U/L (45-117); ANION GAP 9 mmol/L (5-15); BILIRUBIN,TOTAL 0.7 mg/dL (0.2-1.0); CALCIUM 8.6 mg/dL (8.5-10.1); CREATININE 0.81 mg/dL (0.55-1.02); TOTAL PROTEIN 6.4 g/dL (6.4-8.2)
[2018-11-27 07:35] VITALS: BP 140/93
[2018-11-27] MEDS: ESTRADIOL 0.5 MG TABLET PO SCH (09:00)
[2018-11-27] MEDS: MULTIVITAMIN 1 TABLET PO SCH (09:43)
[2018-11-27] MEDS: LACTULOSE 20 GM/30 ML UDC PO SCH (09:43)
[2018-11-27] MEDS: RIFAXIMIN 550 MG TABLET PO SCH ×2 (09:43→19:21)
[2018-11-27] MEDS: MEDROXYPROGESTERONE ACETATE 2.5 MG TABLET PO SCH (09:43)
[2018-11-27] MEDS: TOPIRAMATE 25 MG TABLET PO SCH (09:43)
[2018-11-27 13:11] VITALS: BP 153/99
[2018-11-27 18:29] VITALS: BP 138/89
[2018-11-28 00:56] VITALS: BP 141/90
[2018-11-28 04:49] LABS: BASOPHILS # (AUTO) 0.03 x10^3/uL (0-0.1); BASOPHILS % (AUTO) 0 % (0-1); EOSINOPHILS # (AUTO) 0.15 x10^3/uL (0-0.4); EOSINOPHILS % (AUTO) 2 % (1-7); LYMPHOCYTES # (AUTO) 2.21 x10^3/uL (1-3.4); LYMPHOCYTES % (AUTO) 32 % (22-44); MD NO; MEAN CORPUSCULAR HEMOGLOBIN 28.5 pg (27.0-34.8); MEAN CORPUSCULAR HGB CONC 33.1 g/dL (32.4-35.8); MEAN PLATELET VOLUME 9.2 fL (7.4-10.4); MONOCYTES # (AUTO) 0.44 x10^3/uL (0.2-0.8); MONOCYTES % (AUTO) 6 % (2-9); NEUTROPHILS # (AUTO) 4.15 x10^3/uL (1.8-6.8); NEUTROPHILS % (AUTO) 60 % (42-75); PLATELET COUNT 178 x10^3/uL (130-400); RED BLOOD COUNT 3.93 x10^6/uL (3.82-5.3); RED CELL DISTRIBUTION WIDTH 18.5 % (9.6-15.2)
[2018-11-28 05:05] LABS: CHLORIDE 114 mmol/L (98-107)
[2018-11-28 05:13] LABS: ALANINE AMINOTRANSFERASE 32 U/L (12-78); ALBUMIN 2.8 g/dL (3.4-5.0); ALKALINE PHOSPHATASE 219 U/L (45-117); ANION GAP 9 mmol/L (5-15); BILIRUBIN,TOTAL 0.7 mg/dL (0.2-1.0); CALCIUM 8.4 mg/dL (8.5-10.1); CREATININE 0.66 mg/dL (0.55-1.02); TOTAL PROTEIN 6.6 g/dL (6.4-8.2)
[2018-11-28] MEDS: PANTOPROZOLE 40MG TABLET PO SCH (05:47)
[2018-11-28] MEDS: METOPROLOL TARTRATE 25 MG TABLET PO SCH ×2 (05:47→17:40)
[2018-11-28 06:35] VITALS: BP 147/98
[2018-11-28] MEDS ORDERED: POTASSIUM CHLORIDE 20 MEQ TAB.ER.PRT PO ONE ×2 (08:30→11:30)
[2018-11-28] MEDS: MULTIVITAMIN 1 TABLET PO SCH (08:40)
[2018-11-28] MEDS: RIFAXIMIN 550 MG TABLET PO SCH ×2 (08:40→21:03)
[2018-11-28] MEDS: ESTRADIOL 0.5 MG TABLET PO SCH (08:40)
[2018-11-28] MEDS: LACTULOSE 20 GM/30 ML UDC PO SCH (08:40)
[2018-11-28] MEDS: MEDROXYPROGESTERONE ACETATE 2.5 MG TABLET PO SCH (08:40)
[2018-11-28] MEDS: TOPIRAMATE 25 MG TABLET PO SCH (09:07)
[2018-11-28 12:30] VITALS: BP 129/80
[2018-11-28] MEDS: LACTATED RINGERS 1,000 ML IV SCH ×2 (13:55→21:03)
[2018-11-28 18:57] VITALS: BP 143/87
[2018-11-29 03:28] VITALS: BP 153/87
[2018-11-29 05:39] LABS: BASOPHILS # (AUTO) 0.04 x10^3/uL (0-0.1); BASOPHILS % (AUTO) 1 % (0-1); EOSINOPHILS # (AUTO) 0.04 x10^3/uL (0-0.4); EOSINOPHILS % (AUTO) 1 % (1-7); LYMPHOCYTES # (AUTO) 2.18 x10^3/uL (1-3.4); LYMPHOCYTES % (AUTO) 29 % (22-44); MD NO; MEAN CORPUSCULAR HEMOGLOBIN 28.3 pg (27.0-34.8); MEAN CORPUSCULAR VOLUME 85.7 fL (80-100); MEAN PLATELET VOLUME 9.3 fL (7.4-10.4); MONOCYTES # (AUTO) 0.39 x10^3/uL (0.2-0.8); MONOCYTES % (AUTO) 5 % (2-9); NEUTROPHILS # (AUTO) 4.87 x10^3/uL (1.8-6.8); NEUTROPHILS % (AUTO) 65 % (42-75); PLATELET COUNT 198 x10^3/uL (130-400); RED CELL DISTRIBUTION WIDTH 18.9 % (9.6-15.2)
[2018-11-29 05:57] LABS: ALANINE AMINOTRANSFERASE 34 U/L (12-78); ANION GAP 8 mmol/L (5-15); CALCIUM 8.4 mg/dL (8.5-10.1); CHLORIDE 114 mmol/L (98-107); CREATININE 0.82 mg/dL (0.55-1.02)
[2018-11-29 05:59] LABS: ALKALINE PHOSPHATASE 227 U/L (45-117); BILIRUBIN,TOTAL 0.7 mg/dL (0.2-1.0); TOTAL PROTEIN 7.1 g/dL (6.4-8.2)
[2018-11-29] MEDS: PANTOPROZOLE 40MG TABLET PO SCH (06:25)
[2018-11-29] MEDS: METOPROLOL TARTRATE 25 MG TABLET PO SCH ×2 (06:26→17:36)
[2018-11-29 07:18] VITALS: BP 152/85
[2018-11-29] MEDS: ESTRADIOL 0.5 MG TABLET PO SCH (08:46)
[2018-11-29] MEDS: MEDROXYPROGESTERONE ACETATE 2.5 MG TABLET PO SCH (08:46)
[2018-11-29] MEDS: LACTULOSE 20 GM/30 ML UDC PO SCH (08:47)
[2018-11-29] MEDS: MULTIVITAMIN 1 TABLET PO SCH (08:47)
[2018-11-29] MEDS: RIFAXIMIN 550 MG TABLET PO SCH ×2 (08:47→21:15)
[2018-11-29] MEDS: TOPIRAMATE 25 MG TABLET PO SCH (08:47)
[2018-11-29] MEDS ORDERED: MAGNESIUM SULFATE PMX 2GM/50ML 50 ML IV ONE (09:30)
[2018-11-29] MEDS: NEUTRA PHOS K 250 MG TABLET PO SCH ×3 (11:24→21:15)
[2018-11-29 13:22] VITALS: BP 147/78
[2018-11-29] MEDS: LACTATED RINGERS 1,000 ML IV SCH ×2 (15:50→23:08)
[2018-11-29] MEDS ORDERED: SPIR25TA PO (16:09)
[2018-11-29] MEDS ORDERED: FURO-93 PO (16:09)
[2018-11-29] MEDS ORDERED: ERGOCALCIFEROL 50,000 UNIT CAPSULE PO SCH (16:30)
[2018-11-29] MEDS: METHOCARBAMOL 500 MG TABLET PO PRN ×2 (17:36→23:08)
[2018-11-29] MEDS ORDERED: RIFA550T4 PO (17:40)
[2018-11-29] MEDS ORDERED: ZOLPIDEM 10MG TABLET PO SCH (21:00)
[2018-11-29 21:09] VITALS: BP 93/57
[2018-11-29] MEDS: ROPINIROLE 1MG TABLET PO SCH (21:15)
[2018-11-30 02:00] VITALS: BP 100/70
[2018-11-30] MEDS: METOPROLOL TARTRATE 25 MG TABLET PO SCH ×2 (06:12→17:39)
[2018-11-30] MEDS: METHOCARBAMOL 500 MG TABLET PO PRN ×2 (06:13→22:36)
[2018-11-30] MEDS: PANTOPROZOLE 40MG TABLET PO SCH (06:13)
[2018-11-30] MEDS: LACTATED RINGERS 1,000 ML IV SCH ×2 (06:15→15:30)
[2018-11-30 07:17] VITALS: BP 130/76
[2018-11-30] MEDS: MULTIVITAMIN 1 TABLET PO SCH (09:27)
[2018-11-30] MEDS: MEDROXYPROGESTERONE ACETATE 2.5 MG TABLET PO SCH (09:27)
[2018-11-30] MEDS: LACTULOSE 20 GM/30 ML UDC PO SCH (09:27)
[2018-11-30] MEDS: ESTRADIOL 0.5 MG TABLET PO SCH (09:27)
[2018-11-30] MEDS: RIFAXIMIN 550 MG TABLET PO SCH ×2 (09:27→22:36)
[2018-11-30] MEDS: ROPINIROLE 1MG TABLET PO SCH ×3 (09:27→22:36)
[2018-11-30] MEDS: TOPIRAMATE 25 MG TABLET PO SCH (09:27)
[2018-11-30 13:11] VITALS: BP 174/103
[2018-11-30 17:45] VITALS: BP 160/83
[2018-11-30 21:33] VITALS: BP 149/99
[2018-11-30] MEDS: ZOLPIDEM 5MG TABLET PO PRN (23:43)
[2018-12-01 01:57] VITALS: BP 150/95
[2018-12-01] MEDS: METHOCARBAMOL 500 MG TABLET PO PRN ×2 (05:22→16:02)
[2018-12-01] MEDS: PANTOPROZOLE 40MG TABLET PO SCH (05:22)
[2018-12-01] MEDS: METOPROLOL TARTRATE 25 MG TABLET PO SCH ×2 (05:22→17:54)
[2018-12-01 05:49] LABS: BASOPHILS # (AUTO) 0.03 x10^3/uL (0-0.1); BASOPHILS % (AUTO) 0 % (0-1); EOSINOPHILS % (AUTO) 2 % (1-7); LYMPHOCYTES # (AUTO) 1.94 x10^3/uL (1-3.4); LYMPHOCYTES % (AUTO) 30 % (22-44); MD NO; MEAN CORPUSCULAR HEMOGLOBIN 28.5 pg (27.0-34.8); MEAN CORPUSCULAR HGB CONC 33.3 g/dL (32.4-35.8); MEAN CORPUSCULAR VOLUME 85.5 fL (80-100); MONOCYTES # (AUTO) 0.57 x10^3/uL (0.2-0.8); MONOCYTES % (AUTO) 9 % (2-9); NEUTROPHILS # (AUTO) 3.79 x10^3/uL (1.8-6.8); NEUTROPHILS % (AUTO) 59 % (42-75); PLATELET COUNT 166 x10^3/uL (130-400); RED BLOOD COUNT 3.82 x10^6/uL (3.82-5.3); RED CELL DISTRIBUTION WIDTH 18.8 % (9.6-15.2)
[2018-12-01 06:32] LABS: CHLORIDE 112 mmol/L (98-107)
[2018-12-01 06:52] VITALS: BP 137/87
[2018-12-01 07:14] LABS: ALANINE AMINOTRANSFERASE 33 U/L (12-78); ALBUMIN 2.9 g/dL (3.4-5.0); ALKALINE PHOSPHATASE 194 U/L (45-117); ANION GAP 9 mmol/L (5-15); BILIRUBIN,TOTAL 0.8 mg/dL (0.2-1.0); CALCIUM 8.3 mg/dL (8.5-10.1); CREATININE 0.73 mg/dL (0.55-1.02); TOTAL PROTEIN 6.8 g/dL (6.4-8.2)
[2018-12-01] MEDS: ESTRADIOL 0.5 MG TABLET PO SCH (08:52)
[2018-12-01] MEDS: MEDROXYPROGESTERONE ACETATE 2.5 MG TABLET PO SCH (08:52)
[2018-12-01] MEDS: ROPINIROLE 1MG TABLET PO SCH ×3 (08:53→21:21)
[2018-12-01] MEDS: LACTULOSE 20 GM/30 ML UDC PO SCH (08:53)
[2018-12-01] MEDS: RIFAXIMIN 550 MG TABLET PO SCH ×2 (08:53→21:20)
[2018-12-01] MEDS: TOPIRAMATE 25 MG TABLET PO SCH (08:53)
[2018-12-01] MEDS: MULTIVITAMIN 1 TABLET PO SCH (08:54)
[2018-12-01 12:49] VITALS: BP 152/93
[2018-12-01] MEDS ORDERED: HYDROcodone/APAP 5/325 TABLET PO PRN (16:30)
[2018-12-01] MEDS ORDERED: OXYcodone IR 5MG TABLET PO PRN (18:00)
[2018-12-01] MEDS: [UNRECOGNIZED DRUG - OTHER] MC SCH (18:00)
[2018-12-01 18:45] VITALS: BP 158/82
[2018-12-01] MEDS: ZOLPIDEM 5MG TABLET PO PRN (21:36)
[2018-12-02 01:48] VITALS: BP 146/85
[2018-12-02] MEDS: OXYcodone IR 5MG TABLET PO PRN ×2 (01:56→08:53)
[2018-12-02] MEDS: [UNRECOGNIZED DRUG - OTHER] MC SCH ×2 (02:00→10:00)
[2018-12-02 05:20] LABS: CALCIUM 7.9 mg/dL (8.5-10.1); CHLORIDE 111 mmol/L (98-107)
[2018-12-02 05:24] LABS: ALANINE AMINOTRANSFERASE 31 U/L (12-78); ALBUMIN 2.6 g/dL (3.4-5.0); ALKALINE PHOSPHATASE 178 U/L (45-117); ANION GAP 8 mmol/L (5-15); BILIRUBIN,TOTAL 0.9 mg/dL (0.2-1.0); CREATININE 0.76 mg/dL (0.55-1.02); TOTAL PROTEIN 6.1 g/dL (6.4-8.2)
[2018-12-02] MEDS: PANTOPROZOLE 40MG TABLET PO SCH (06:20)
[2018-12-02] MEDS: METOPROLOL TARTRATE 25 MG TABLET PO SCH (06:21)
[2018-12-02 08:04] VITALS: BP 112/75
[2018-12-02] MEDS: ESTRADIOL 0.5 MG TABLET PO SCH (08:40)
[2018-12-02] MEDS: MEDROXYPROGESTERONE ACETATE 2.5 MG TABLET PO SCH (08:40)
[2018-12-02] MEDS: LACTULOSE 20 GM/30 ML UDC PO SCH (08:52)
[2018-12-02] MEDS: MULTIVITAMIN 1 TABLET PO SCH (08:52)
[2018-12-02] MEDS: ROPINIROLE 1MG TABLET PO SCH (08:52)
[2018-12-02] MEDS: RIFAXIMIN 550 MG TABLET PO SCH (08:52)
[2018-12-02] MEDS: TOPIRAMATE 25 MG TABLET PO SCH (08:53)
[2018-12-02] MEDS: METHOCARBAMOL 500 MG TABLET PO PRN (10:51)
[2018-12-02] MEDS ORDERED: METO25TA35 PO (12:05)
[2018-12-02 14:35] VITALS: BP 148/93
== END 2018-12-02 16:19 | disposition home health service (06) | DRG 441 ==
LOC: ED 23:41 → EDIP 23:58 → 4NOR 11-22 01:14
PROVIDERS: ADMIT Family Medicine; ATTEND Family Medicine
PROC: 0T9B70Z Drainage of Bladder with Drainage Device, Via Natural or Artificial Opening (ICD-10-PCS; principal; 2018-11-21)
DX: K72.00 Acute and subacute hepatic failure without coma (principal); G92 Toxic encephalopathy; E87.2 Acidosis; F33.9 Major depressive disorder, recurrent, unspecified; N17.9 Acute kidney failure, unspecified; I82.409 Acute embolism and thrombosis of unspecified deep veins of unspecified lower extremity; K74.60 Unspecified cirrhosis of liver; B18.2 Chronic viral hepatitis C; E83.42 Hypomagnesemia; E87.6 Hypokalemia; G25.81 Restless legs syndrome; G89.4 Chronic pain syndrome; I50.9 Heart failure, unspecified; K21.9 Gastro-esophageal reflux disease without esophagitis; G47.30 Sleep apnea, unspecified; E11.9 Type 2 diabetes mellitus without complications; I11.0 Hypertensive heart disease with heart failure; Z82.49 Family history of ischemic heart disease and other diseases of the circulatory system; Z83.3 Family history of diabetes mellitus; Z84.1 Family history of disorders of kidney and ureter; Z86.73 Personal history of transient ischemic attack (TIA), and cerebral infarction without residual deficits; Z87.891 Personal history of nicotine dependence
CPT/HCPCS: 36415; 70450; 71045; 76700; 80048; 80053; 80307; 80329; 81001; 82140; 82306; 82607; 83735; 84100; 84484; 85025; 85610; 87086; 93005; 99285; G0378; Q0162; G0480; J0360; J3475; J7120

== ENCOUNTER 2018-12-23 16:05 | Inpatient (IN) | payer OTHER ==
[~2018-12-23] VITALS: Ht 160 cm; Wt 62.6 kg
[~2018-12-23 16:05] MED LIST changes: +FURO-93 PO; +METO25TA35 PO; +OXYC5TAB3 PO; +RIFA550T4 PO; +SPIR25TA PO; +ZALE10CA PO; +ZOLP10TA5 PO
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
--- NOTE | 2018-12-23 16:12 | NUR ---
EDT at bedside for EKG.
--- NOTE | 2018-12-23 16:20 | NUR ---
Pharmacy slip sent for lactulose.
--- NOTE | 2018-12-23 16:25 | NUR ---
Pt getting out of bed, RN to bedside. Pt states that she needs to use the bathroom. Pt assisted with equipment/wires and ambulated to bathroom, with a steady gait.
--- NOTE | 2018-12-23 16:28 | NUR ---
Pt unable to follow directions for urine sample, RN to bathroom to assist pt to obtain urine sample. Pt easily frustrated with attempts at assistance, pt yelling at RN to "slow down" when attempting to have pt sit on toilet as she has urinated all over the floor.
[2018-12-23] MEDS ORDERED: LACTULOSE 20 GM/30 ML UDC PO ONE (16:30)
[2018-12-23] MEDS ORDERED: SODIUM CHLORIDE FLUSH 10ML SYR IVF ONE (16:30)
--- NOTE | 2018-12-23 16:42 | NUR ---
Lab at bedside.
[2018-12-23 17:03] LABS: BASOPHILS # (AUTO) 0.01 x10^3/uL (0-0.1); BASOPHILS % (AUTO) 0 % (0-1); EOSINOPHILS # (AUTO) 0.02 x10^3/uL (0-0.4); EOSINOPHILS % (AUTO) 0 % (1-7); LYMPHOCYTES # (AUTO) 1.63 x10^3/uL (1-3.4); LYMPHOCYTES % (AUTO) 19 % (22-44); MD NO; MEAN CORPUSCULAR HEMOGLOBIN 28.4 pg (27.0-34.8); MEAN CORPUSCULAR HGB CONC 32.8 g/dL (32.4-35.8); MEAN CORPUSCULAR VOLUME 86.7 fL (80-100); MEAN PLATELET VOLUME 8.2 fL (7.4-10.4); MONOCYTES % (AUTO) 5 % (2-9); NEUTROPHILS # (AUTO) 6.65 x10^3/uL (1.8-6.8); NEUTROPHILS % (AUTO) 76 % (42-75); PLATELET COUNT 283 x10^3/uL (130-400); RED BLOOD COUNT 4.26 x10^6/uL (3.82-5.3); RED CELL DISTRIBUTION WIDTH 20.2 % (9.6-15.2)
[2018-12-23] MEDS ORDERED: LORazepam 2 MG/ML, 1ML ONE (17:05)
[2018-12-23 17:08] LABS: INTERNATIONAL NORMALIZED RATIO 1.19 (0.93-1.1); PROTHROMBIN TIME 12.5 Seconds (9.6-11.5)
--- NOTE | 2018-12-23 17:08 | NUR ---
Pt medicated per MAR. Family at bedside now. Pt remains on all monitors, pt continuing to pick at equipment and confused when conversing.
[2018-12-23 17:12] LABS: MICROSCOPIC NOT IND
[2018-12-23 17:18] LABS: CULTURE INDICATED? NO
--- NOTE | 2018-12-23 17:25 | NUR ---
Pt increasingly agitated, restless, attempting to climb out of bed. Pt's family at bedside out to nursing station to get assistance, EDT at bedside to assist pt back into bed. This RN to bedside to assist, new orders received from MD for agitation.
[2018-12-23] MEDS ORDERED: HALOPERIDOL 5 MG/ML IV ONE (17:30)
[2018-12-23] MEDS ORDERED: HALOPERIDOL 5 MG/ML ONE (17:30)
[2018-12-23] MEDS ORDERED: LORazepam 2 MG/ML, 1ML IVPush ONE (17:30)
--- NOTE | 2018-12-23 17:41 | NUR ---
Pt medicated per MAR. Pt remains on all monitors, NSR noted.
[2018-12-23 17:49] LABS: ALANINE AMINOTRANSFERASE 72 U/L (12-78); ALBUMIN 3.4 g/dL (3.4-5.0); ANION GAP 11 mmol/L (5-15); CALCIUM 9.3 mg/dL (8.5-10.1); CHLORIDE 107 mmol/L (98-107); CREATININE 1.63 mg/dL (0.55-1.02)
[2018-12-23 17:51] LABS: ALKALINE PHOSPHATASE 564 U/L (45-117); BILIRUBIN,TOTAL 1.2 mg/dL (0.2-1.0)
--- NOTE | 2018-12-23 18:15 | NUR ---
Dr. Bueno at bedside to update pt and family on ED findings and POC to admit.
--- NOTE | 2018-12-23 18:17 | NUR ---
Pt medicated per MAR. Pt remains on all monitors, much less agitated now, intermittent restlessness still noted.
--- NOTE | 2018-12-23 18:52 | NUR ---
Telephone SBAR report called to Aparna MCNEILL.
[2018-12-23 19:00] VITALS: BP 168/74
[2018-12-23] MEDS ORDERED: ONDANSETRON 2MG/ML, 2ML IVPush PRN (19:00)
[2018-12-23] MEDS ORDERED: LIDODERM 5% PATCH TD PRN (19:00)
[2018-12-23] MEDS ORDERED: hydrALAzine 20 MG/ML, 1ML IVPush PRN (19:00)
[2018-12-23 19:05] LABS: AMPHETAMINE SCREEN, URINE Negative (Negative); BARBITURATE SCREEN, URINE Negative (Negative); BENZODIAZEPINE SCREEN, URINE Negative (Negative); CANNABINOID SCREEN, URINE Positive (Negative); COCAINE SCREEN, URINE Negative (Negative); METHADONE SCREEN, URINE Negative (Negative); OPIATE SCREEN, URINE Positive (Negative)
[2018-12-23] MEDS ORDERED: LACTULOSE 10 GM/15 ML UDC PO SCH (21:00)
[2018-12-23] MEDS ORDERED: LACTULOSE 3.3 GM/5 ML ORAL.SOL RC ONE (22:00)
[2018-12-23] MEDS ORDERED: LACTULOSE 3.3 GM/5 ML ORAL.SOL RC SCH (22:30)
[2018-12-23] MEDS: D5%-0.45% NACL 1,000 ML IV SCH ×2 (23:22→23:37)
[2018-12-24 02:17] VITALS: BP 127/84
[2018-12-24 02:18] LABS: CLOSTRIDIUM DIFFICILE ANTIGEN NEGATIVE; CLOSTRIDIUM DIFFICILE TOXIN NEGATIVE (Negative)
[2018-12-24 05:16] LABS: ANION GAP 8 mmol/L (5-15); CALCIUM 9.4 mg/dL (8.5-10.1); CHLORIDE 113 mmol/L (98-107); CREATININE 1.38 mg/dL (0.55-1.02)
[2018-12-24 05:18] LABS: BASOPHILS # (AUTO) 0.03 x10^3/uL (0-0.1); BASOPHILS % (AUTO) 1 % (0-1); EOSINOPHILS # (AUTO) 0.04 x10^3/uL (0-0.4); EOSINOPHILS % (AUTO) 1 % (1-7); LYMPHOCYTES # (AUTO) 1.73 x10^3/uL (1-3.4); LYMPHOCYTES % (AUTO) 31 % (22-44); MD NO; MEAN CORPUSCULAR HEMOGLOBIN 28.8 pg (27.0-34.8); MEAN CORPUSCULAR HGB CONC 33.2 g/dL (32.4-35.8); MEAN CORPUSCULAR VOLUME 86.9 fL (80-100); MEAN PLATELET VOLUME 8.2 fL (7.4-10.4); MONOCYTES % (AUTO) 11 % (2-9); NEUTROPHILS % (AUTO) 57 % (42-75); PLATELET COUNT 183 x10^3/uL (130-400); RED BLOOD COUNT 3.88 x10^6/uL (3.82-5.3); RED CELL DISTRIBUTION WIDTH 20.3 % (9.6-15.2)
[2018-12-24] MEDS ORDERED: LACTULOSE 20 GM/30 ML UDC PO SCH (06:00)
[2018-12-24 07:59] VITALS: BP 157/94
[2018-12-24 14:17] VITALS: BP 142/84
[2018-12-24] MEDS: LACTULOSE 20 GM/30 ML UDC PO SCH ×2 (16:28→20:13)
[2018-12-24] MEDS: D5%-0.45% NACL 1,000 ML IV SCH (16:31)
[2018-12-24 20:19] VITALS: BP 162/91
[2018-12-25 01:08] VITALS: BP 163/104
[2018-12-25 06:05] LABS: CHLORIDE 115 mmol/L (98-107)
[2018-12-25 06:15] LABS: ALANINE AMINOTRANSFERASE 53 U/L (12-78); ALBUMIN 3.1 g/dL (3.4-5.0); ALKALINE PHOSPHATASE 428 U/L (45-117); ANION GAP 13 mmol/L (5-15); BILIRUBIN,TOTAL 0.8 mg/dL (0.2-1.0); CALCIUM 8.8 mg/dL (8.5-10.1); CREATININE 1.29 mg/dL (0.55-1.02); TOTAL PROTEIN 7.5 g/dL (6.4-8.2)
[2018-12-25 07:00] VITALS: BP 167/89
[2018-12-25] MEDS: SODIUM CHLORIDE 0.45% 1,000 ML IV SCH ×2 (07:41→17:21)
[2018-12-25] MEDS ORDERED: KETOROLAC 30 MG/1 ML IVPush ONE (09:30)
[2018-12-25] MEDS ORDERED: AMLODIPINE 2.5 MG TABLET PO SCH (09:30)
[2018-12-25] MEDS: MEDROXYPROGESTERONE ACETATE 2.5 MG TABLET PO SCH (11:38)
[2018-12-25] MEDS: PANTOPROZOLE 40MG TABLET PO SCH (11:38)
[2018-12-25] MEDS: ESTRADIOL 0.5 MG TABLET PO SCH (11:38)
[2018-12-25] MEDS: PAROXETINE 20 MG TABLET PO SCH (11:38)
[2018-12-25] MEDS: ROPINIROLE 1MG TABLET PO SCH ×3 (11:38→20:23)
[2018-12-25] MEDS: TOPIRAMATE 25 MG TABLET PO SCH (11:38)
[2018-12-25] MEDS: MULTIVITAMIN 1 TABLET PO SCH (11:38)
[2018-12-25 12:37] VITALS: BP 156/94
[2018-12-25] MEDS: METOPROLOL TARTRATE 25 MG TABLET PO SCH (17:21)
[2018-12-25 19:55] VITALS: BP 158/86
[2018-12-25] MEDS: RIFAXIMIN 550 MG TABLET PO SCH (20:24)
[2018-12-26 02:34] VITALS: BP 159/90
[2018-12-26] MEDS: SODIUM CHLORIDE 0.45% 1,000 ML IV SCH (03:49)
[2018-12-26] MEDS: METOPROLOL TARTRATE 25 MG TABLET PO SCH ×2 (05:16→17:48)
[2018-12-26 05:23] LABS: ANION GAP 10 mmol/L (5-15); CALCIUM 7.9 mg/dL (8.5-10.1); CHLORIDE 114 mmol/L (98-107); CREATININE 0.96 mg/dL (0.55-1.02)
[2018-12-26 06:28] VITALS: BP 173/88
[2018-12-26] MEDS ORDERED: ERGOCALCIFEROL 50,000 UNIT CAPSULE PO SCH (07:00)
[2018-12-26] MEDS: FUROSEMIDE 20 MG TABLET PO SCH (09:45)
[2018-12-26] MEDS: ESTRADIOL 0.5 MG TABLET PO SCH (09:45)
[2018-12-26] MEDS: RIFAXIMIN 550 MG TABLET PO SCH ×2 (09:46→19:54)
[2018-12-26] MEDS: PAROXETINE 20 MG TABLET PO SCH (09:46)
[2018-12-26] MEDS: TOPIRAMATE 25 MG TABLET PO SCH (09:47)
[2018-12-26] MEDS: MEDROXYPROGESTERONE ACETATE 2.5 MG TABLET PO SCH (09:47)
[2018-12-26] MEDS: SODIUM BICARBONATE 650 MG TABLET PO SCH ×2 (09:47→19:54)
[2018-12-26] MEDS: SPIRONOLACTONE 25 MG TABLET PO SCH (09:47)
[2018-12-26] MEDS: MULTIVITAMIN 1 TABLET PO SCH (09:47)
[2018-12-26] MEDS: ROPINIROLE 1MG TABLET PO SCH ×3 (09:47→19:54)
[2018-12-26] MEDS: PANTOPROZOLE 40MG TABLET PO SCH (09:47)
[2018-12-26] MEDS ORDERED: LACTULOSE 20 GM/30 ML UDC PO PRN (10:00)
[2018-12-26 12:55] VITALS: BP 157/96
[2018-12-26 19:34] VITALS: BP 150/82
[2018-12-26] MEDS: HEPARIN 5,000 UNITS/ML, 1ML SQ SCH (22:10)
[2018-12-27 02:40] VITALS: BP 153/86
[2018-12-27] MEDS: METOPROLOL TARTRATE 25 MG TABLET PO SCH (05:53)
[2018-12-27] MEDS: HEPARIN 5,000 UNITS/ML, 1ML SQ SCH ×2 (05:56→13:55)
[2018-12-27 06:08] LABS: CHLORIDE 114 mmol/L (98-107)
[2018-12-27 06:15] LABS: ALANINE AMINOTRANSFERASE 36 U/L (12-78); ALBUMIN 2.6 g/dL (3.4-5.0); ALKALINE PHOSPHATASE 325 U/L (45-117); ANION GAP 8 mmol/L (5-15); BILIRUBIN,TOTAL 0.8 mg/dL (0.2-1.0); CALCIUM 8.6 mg/dL (8.5-10.1); CREATININE 0.77 mg/dL (0.55-1.02); TOTAL PROTEIN 6.4 g/dL (6.4-8.2)
[2018-12-27 07:53] VITALS: BP 166/74
[2018-12-27] MEDS: LACTULOSE 20 GM/30 ML UDC PO SCH ×2 (09:30→15:41)
[2018-12-27] MEDS: MEDROXYPROGESTERONE ACETATE 2.5 MG TABLET PO SCH (10:05)
[2018-12-27] MEDS: SPIRONOLACTONE 25 MG TABLET PO SCH (10:05)
[2018-12-27] MEDS: ESTRADIOL 0.5 MG TABLET PO SCH (10:05)
[2018-12-27] MEDS: RIFAXIMIN 550 MG TABLET PO SCH (10:05)
[2018-12-27] MEDS: SODIUM BICARBONATE 650 MG TABLET PO SCH (10:06)
[2018-12-27] MEDS: PAROXETINE 20 MG TABLET PO SCH (10:06)
[2018-12-27] MEDS: PANTOPROZOLE 40MG TABLET PO SCH (10:06)
[2018-12-27] MEDS: ROPINIROLE 1MG TABLET PO SCH (10:06)
[2018-12-27] MEDS: TOPIRAMATE 25 MG TABLET PO SCH (10:06)
[2018-12-27] MEDS: FUROSEMIDE 20 MG TABLET PO SCH (10:06)
[2018-12-27] MEDS: MULTIVITAMIN 1 TABLET PO SCH (10:06)
[2018-12-27] MEDS ORDERED: SODI650T PO (11:31)
[2018-12-27] MEDS ORDERED: LACT20SO13 PO (11:31)
[2018-12-27 15:03] VITALS: BP 133/78
== END 2018-12-27 16:15 | disposition home health service (06) | DRG 441 ==
LOC: ED 16:59 → EDIP 18:04 → 3NE 19:01
PROVIDERS: ADMIT Internal Medicine; ATTEND Internal Medicine
DX: K72.00 Acute and subacute hepatic failure without coma (principal); N17.0 Acute kidney failure with tubular necrosis; E87.2 Acidosis; F33.9 Major depressive disorder, recurrent, unspecified; B18.2 Chronic viral hepatitis C; E11.9 Type 2 diabetes mellitus without complications; E86.0 Dehydration; E87.6 Hypokalemia; F12.90 Cannabis use, unspecified, uncomplicated; F17.210 Nicotine dependence, cigarettes, uncomplicated; G25.81 Restless legs syndrome; G47.30 Sleep apnea, unspecified; I11.0 Hypertensive heart disease with heart failure; I50.9 Heart failure, unspecified; K21.9 Gastro-esophageal reflux disease without esophagitis; K74.60 Unspecified cirrhosis of liver; Z78.1 Physical restraint status; Z82.49 Family history of ischemic heart disease and other diseases of the circulatory system; Z83.3 Family history of diabetes mellitus; Z84.1 Family history of disorders of kidney and ureter; Z87.81 Personal history of (healed) traumatic fracture; Z91.19 Patient's noncompliance with other medical treatment and regimen; Z90.49 Acquired absence of other specified parts of digestive tract; Z87.828 Personal history of other (healed) physical injury and trauma; Z79.899 Other long term (current) drug therapy
CPT/HCPCS: 36415; 80048; 80053; 80307; 81003; 82140; 82607; 84443; 85025; 85610; 87324; 90656; 93005; 96374; 96375; G0378; J1644; J1885; J1630; J2060

== ENCOUNTER → 2019-01-30 | Outpatient (CLI) | payer OTHER ==
[~2019-01-30] MED LIST changes: +LIDOCAINE-MPF 1%, 5ML ONE; -MIRT30TA6 PO; +MIRT30TA97 PO; +SODI650T PO
== END | disposition home or self-care (01) ==
LOC: RAD 10:16
PROVIDERS: ATTEND Internal Medicine
DX: K74.60 Unspecified cirrhosis of liver (principal)
CPT/HCPCS: 49083

== ENCOUNTER → 2019-05-05 | Outpatient (CLI) | payer OTHER | END | disposition home or self-care (01) | LOC: RAD 12:51 | PROVIDERS: ATTEND Internal Medicine | DX: K74.60 Unspecified cirrhosis of liver (principal) | CPT/HCPCS: 49083 ==

== ENCOUNTER → 2019-05-30 | Outpatient (CLI) | payer OTHER | END | disposition home or self-care (01) | LOC: RAD 10:35 | PROVIDERS: ATTEND Nurse Practitioner Family | DX: J90 Pleural effusion, not elsewhere classified (principal) | CPT/HCPCS: 32555; 71045 ==

== ENCOUNTER 2019-11-26 15:12 | Emergency (ER) | payer SELFPAY ==
[~2019-11-26] VITALS: Ht 167.6 cm; Wt 62.0 kg
[~2019-11-26 15:12] MED LIST changes: +LACT10SO24 PO; -LACT10SO5 PO; -LIDOCAINE-MPF 1%, 5ML ONE; -TIZA4TAB PO; +TIZA4TAB2 PO
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
[2019-11-26 16:22] LABS: BASOPHILS % (AUTO) 0 % (0-1); EOSINOPHILS # (AUTO) 0.02 x10^3/uL (0-0.4); EOSINOPHILS % (AUTO) 0 % (1-7); LYMPHOCYTES # (AUTO) 0.92 x10^3/uL (1-3.4); LYMPHOCYTES % (AUTO) 16 % (22-44); MD NO; MEAN CORPUSCULAR HEMOGLOBIN 24.6 pg (27.0-34.8); MEAN CORPUSCULAR HGB CONC 31.3 g/dL (32.4-35.8); MEAN CORPUSCULAR VOLUME 78.6 fL (80-100); MEAN PLATELET VOLUME 9.9 fL (7.4-10.4); MONOCYTES # (AUTO) 0.54 x10^3/uL (0.2-0.8); MONOCYTES % (AUTO) 9 % (2-9); NEUTROPHILS % (AUTO) 75 % (42-75); PLATELET COUNT 152 x10^3/uL (130-400); RED BLOOD COUNT 4.33 x10^6/uL (3.82-5.3); RED CELL DISTRIBUTION WIDTH 20.7 % (9.6-15.2)
[2019-11-26 16:31] LABS: ALANINE AMINOTRANSFERASE 47 U/L (12-78); ALBUMIN 2.7 g/dL (3.4-5.0); ANION GAP 6 mmol/L (5-15); CALCIUM 8.7 mg/dL (8.5-10.1); CHLORIDE 110 mmol/L (98-107)
[2019-11-26 16:35] LABS: ALKALINE PHOSPHATASE 310 U/L (45-117); BILIRUBIN,TOTAL 1.3 mg/dL (0.2-1.0); TOTAL PROTEIN 7.2 g/dL (6.4-8.2); TROPONIN I < 0.015 ng/mL (0.000-0.045)
--- NOTE | 2019-11-26 16:45 | NUR ---
ERMD AT BEDSIDE FOR UPDATE ON POC
--- NOTE | 2019-11-26 17:19 | NUR ---
PT TO IMAGING
[2019-11-26 18:04] VITALS: BP 126/89
--- NOTE | 2019-11-26 18:12 | NUR ---
SNACK PROVIDED, PATIENT UPDATED ON POC
--- NOTE | 2019-11-26 18:43 | NUR ---
PT STEADY AMBULATION TO BATHROOM.
--- NOTE | 2019-11-26 18:56 | NUR ---
REPORT RECEIVED FROM OSITO LONG. PT AMBULATED BACK FROM BR WITH STEADY GAIT. MONITORING REAPPLIED. PT UPDATED ON POC. CALL LIGHT WITHIN REACH, ALL SAFETY MEASURES IN PLACE.
== END 2019-11-26 20:04 | disposition home or self-care (01) ==
LOC: ED 17:00
DX: J90 Pleural effusion, not elsewhere classified (principal); R06.00 Dyspnea, unspecified; K83.8 Other specified diseases of biliary tract; E11.9 Type 2 diabetes mellitus without complications; I50.9 Heart failure, unspecified; Z87.891 Personal history of nicotine dependence
CPT/HCPCS: 32555; 36415; 71045; 76700; 80053; 83690; 84484; 85025; 93005; 99285

== ENCOUNTER 2020-01-21 13:36 | Inpatient (IN) | payer SELFPAY ==
[~2020-01-21] VITALS: Ht 167.6 cm; Wt 63.8 kg
[~2020-01-21 13:36] MED LIST changes: +MECL-101 PO; -MECL25TA4 PO; -ROPI1TAB2 PO; +ROPI1TAB4 PO
[2020-01-21] MEDS ORDERED: NEOSPORIN OINT. PKT 1 PACKET ONE (13:57)
[2020-01-21] MEDS ORDERED: BACITRACIN ZINC OINT 500U/GM, 0.9 GM TP ONE (14:00)
[2020-01-21 14:10] LABS: BASOPHILS # (AUTO) 0.02 x10^3/uL (0-0.1); BASOPHILS % (AUTO) 0 % (0-1); EOSINOPHILS # (AUTO) 0.03 x10^3/uL (0-0.4); EOSINOPHILS % (AUTO) 1 % (1-7); LYMPHOCYTES # (AUTO) 1.03 x10^3/uL (1-3.4); LYMPHOCYTES % (AUTO) 22 % (22-44); MD NO; MEAN CORPUSCULAR HEMOGLOBIN 23.5 pg (27.0-34.8); MEAN CORPUSCULAR HGB CONC 31.2 g/dL (32.4-35.8); MEAN CORPUSCULAR VOLUME 75.1 fL (80-100); MEAN PLATELET VOLUME 8.7 fL (7.4-10.4); MONOCYTES # (AUTO) 0.26 x10^3/uL (0.2-0.8); MONOCYTES % (AUTO) 6 % (2-9); NEUTROPHILS % (AUTO) 71 % (42-75); PLATELET COUNT 170 x10^3/uL (130-400); RED BLOOD COUNT 4.79 x10^6/uL (3.82-5.3); RED CELL DISTRIBUTION WIDTH 19.4 % (9.6-15.2)
--- NOTE | 2020-01-21 14:16 | NUR ---
URINE COLLECTED VIA STRAIGHT CATH. UA COLLECTED AND TAKEN TO LAB. LABS COLLECTED. PT PROVIDED WARM BLANKET. ELÍAS.
[2020-01-21 14:23] LABS: ALANINE AMINOTRANSFERASE 51 U/L (12-78); ALBUMIN 3.1 g/dL (3.4-5.0); ANION GAP 7 mmol/L (5-15); CALCIUM 8.8 mg/dL (8.5-10.1); CHLORIDE 107 mmol/L (98-107); CREATININE 0.96 mg/dL (0.55-1.02)
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
[2020-01-21 14:26] LABS: ALKALINE PHOSPHATASE 228 U/L (45-117); BILIRUBIN,TOTAL 1.1 mg/dL (0.2-1.0); TOTAL PROTEIN 7.8 g/dL (6.4-8.2)
[2020-01-21 14:36] LABS: CULTURE INDICATED? YES; MICROSCOPIC INDICATED
--- NOTE | 2020-01-21 15:42 | NUR ---
PT GOING TO CT
--- NOTE | 2020-01-21 16:07 | NUR ---
PT BACK FROM CT AND CONNECTED TO MONITORING. RECEIVED ADMIT ORDER.
--- NOTE | 2020-01-21 16:15 | NUR ---
PT BROUGHT IN WITH GARBAGE BAG FULL OF PRESCRIPTION BOTTLES, ONLY A FEW HAD ANY MEDS IN THEM. BOTTLES WERE SORTED. LAST TIME PRESCRIPTIONS FILLED WERE MAY/JUNE 2019. PT DOES NOT KNOW WHEN THE LAST TIME SHE TOOK ANY MEDICATIONS. MED RECONCILE WAS COMPLETED WITH MOST CURRENT REFILL DATES.
--- NOTE | 2020-01-21 16:53 | NUR ---
HOSPITALIST AT BEDSIDE.
--- NOTE | 2020-01-21 17:29 | NUR ---
REPORT GIVEN TO CORBY MCNEILL
[2020-01-21 17:55] LABS: AMPHETAMINE SCREEN, URINE Negative (Negative); BARBITURATE SCREEN, URINE Negative (Negative); BENZODIAZEPINE SCREEN, URINE Negative (Negative); CANNABINOID SCREEN, URINE Positive (Negative); COCAINE SCREEN, URINE Negative (Negative); METHADONE SCREEN, URINE Negative (Negative); OPIATE SCREEN, URINE Positive (Negative)
[2020-01-21] MEDS: ENOXAPARIN 40 MG/0.4 ML SQ SCH (18:27)
[2020-01-21] MEDS: METOPROLOL TARTRATE 25 MG TAB PO SCH (18:28)
[2020-01-21 19:55] VITALS: BP 171/100
[2020-01-21] MEDS: RIFAXIMIN 550 MG TABLET PO SCH (20:15)
[2020-01-21] MEDS: LACTULOSE 20 GM/30 ML UDC PO SCH (20:15)
[2020-01-21] MEDS: IBUPROFEN 600 MG TABLET PO PRN (20:15)
[2020-01-21 20:55] VITALS: BP 136/76
[2020-01-21] MEDS ORDERED: morphine SULFATE 10 MG/ML, 1ML ONE (21:07)
[2020-01-21] MEDS ORDERED: MORPHINE SULFATE 4 MG/ML, 1ML IVPush PRN (21:30)
[2020-01-22] MEDS ORDERED: TIZA4TAB2 PO (00:54)
[2020-01-22] MEDS ORDERED: MORP-59 PO (00:54)
[2020-01-22] MEDS ORDERED: OXYC5TAB2 PO (00:54)
[2020-01-22 01:33] VITALS: BP 143/80
[2020-01-22 06:09] VITALS: BP 152/91
[2020-01-22] MEDS: IBUPROFEN 600 MG TABLET PO PRN (06:15)
[2020-01-22] MEDS: METOPROLOL TARTRATE 25 MG TAB PO SCH ×2 (06:15→17:01)
[2020-01-22 06:28] LABS: ALBUMIN 2.4 g/dL (3.4-5.0); ANION GAP 5 mmol/L (5-15); BASOPHILS # (AUTO) 0.03 x10^3/uL (0-0.1); BASOPHILS % (AUTO) 1 % (0-1); CHLORIDE 108 mmol/L (98-107); EOSINOPHILS # (AUTO) 0.11 x10^3/uL (0-0.4); EOSINOPHILS % (AUTO) 2 % (1-7); LYMPHOCYTES # (AUTO) 1.55 x10^3/uL (1-3.4); LYMPHOCYTES % (AUTO) 27 % (22-44); MD NO; MEAN CORPUSCULAR HEMOGLOBIN 23.7 pg (27.0-34.8); MEAN CORPUSCULAR HGB CONC 31.7 g/dL (32.4-35.8); MEAN CORPUSCULAR VOLUME 74.7 fL (80-100); MEAN PLATELET VOLUME 9.4 fL (7.4-10.4); MONOCYTES # (AUTO) 0.36 x10^3/uL (0.2-0.8); MONOCYTES % (AUTO) 6 % (2-9); NEUTROPHILS # (AUTO) 3.76 x10^3/uL (1.8-6.8); NEUTROPHILS % (AUTO) 65 % (42-75); PLATELET COUNT 148 x10^3/uL (130-400); RED BLOOD COUNT 4.13 x10^6/uL (3.82-5.3)
[2020-01-22 06:33] LABS: ALANINE AMINOTRANSFERASE 43 U/L (12-78); ALKALINE PHOSPHATASE 188 U/L (45-117); TOTAL PROTEIN 6.4 g/dL (6.4-8.2)
[2020-01-22 07:11] VITALS: BP 126/74
[2020-01-22] MEDS ORDERED: PAROXETINE 20 MG TABLET PO SCH (09:00)
[2020-01-22] MEDS: RIFAXIMIN 550 MG TABLET PO SCH ×2 (09:30→22:05)
[2020-01-22] MEDS: SPIRONOLACTONE 50 MG TABLET PO SCH (09:30)
[2020-01-22] MEDS: PANTOPROZOLE 40MG TABLET PO SCH (09:31)
[2020-01-22] MEDS: MULTIVITAMIN 1 TABLET PO SCH (09:31)
[2020-01-22] MEDS: LACTULOSE 20 GM/30 ML UDC PO SCH ×2 (09:31→22:05)
[2020-01-22] MEDS: FUROSEMIDE 20 MG TABLET PO SCH (09:31)
[2020-01-22] MEDS ORDERED: ONDANSETRON 2MG/ML, 2ML ONE (10:36)
[2020-01-22] MEDS: ONDANSETRON 2MG/ML, 2ML IVPush PRN (10:39)
[2020-01-22 13:06] VITALS: BP 130/73
[2020-01-22] MEDS: ENOXAPARIN 40 MG/0.4 ML SQ SCH (17:01)
[2020-01-22] MEDS: OXYcodone IR 5MG TABLET PO PRN (17:02)
[2020-01-22 20:00] VITALS: BP 134/80
[2020-01-23 00:15] VITALS: BP 140/92
[2020-01-23] MEDS: METOPROLOL TARTRATE 25 MG TAB PO SCH ×3 (06:06→18:00)
[2020-01-23 06:41] LABS: BASOPHILS # (AUTO) 0.02 x10^3/uL (0-0.1); BASOPHILS % (AUTO) 0 % (0-1); EOSINOPHILS # (AUTO) 0.17 x10^3/uL (0-0.4); EOSINOPHILS % (AUTO) 3 % (1-7); LYMPHOCYTES % (AUTO) 33 % (22-44); MD NO; MEAN CORPUSCULAR HEMOGLOBIN 23.7 pg (27.0-34.8); MEAN CORPUSCULAR HGB CONC 31.4 g/dL (32.4-35.8); MEAN CORPUSCULAR VOLUME 75.7 fL (80-100); MEAN PLATELET VOLUME 8.9 fL (7.4-10.4); MONOCYTES # (AUTO) 0.42 x10^3/uL (0.2-0.8); MONOCYTES % (AUTO) 7 % (2-9); NEUTROPHILS % (AUTO) 57 % (42-75); PLATELET COUNT 159 x10^3/uL (130-400); RED BLOOD COUNT 4.29 x10^6/uL (3.82-5.3); RED CELL DISTRIBUTION WIDTH 18.9 % (9.6-15.2)
[2020-01-23 06:50] LABS: ALANINE AMINOTRANSFERASE 52 U/L (12-78); ALBUMIN 2.4 g/dL (3.4-5.0); ANION GAP 6 mmol/L (5-15); CALCIUM 7.9 mg/dL (8.5-10.1); CHLORIDE 108 mmol/L (98-107); CREATININE 0.91 mg/dL (0.55-1.02)
[2020-01-23 06:53] LABS: ALKALINE PHOSPHATASE 206 U/L (45-117); BILIRUBIN,TOTAL 0.9 mg/dL (0.2-1.0); TOTAL PROTEIN 6.5 g/dL (6.4-8.2)
[2020-01-23 07:54] VITALS: BP 120/70
[2020-01-23] MEDS: LACTULOSE 20 GM/30 ML UDC PO SCH ×3 (09:31→22:12)
[2020-01-23] MEDS: MULTIVITAMIN 1 TABLET PO SCH (09:33)
[2020-01-23] MEDS: FUROSEMIDE 20 MG TABLET PO SCH (09:33)
[2020-01-23] MEDS: PANTOPROZOLE 40MG TABLET PO SCH (09:35)
[2020-01-23] MEDS: RIFAXIMIN 550 MG TABLET PO SCH ×2 (09:35→22:12)
[2020-01-23] MEDS: SPIRONOLACTONE 50 MG TABLET PO SCH (09:36)
[2020-01-23] MEDS: ESCITALOPRAM 10MG TABLET PO SCH (09:40)
[2020-01-23 12:11] VITALS: BP 131/66
[2020-01-23] MEDS: OXYcodone IR 5MG TABLET PO PRN (15:22)
[2020-01-23] MEDS: ENOXAPARIN 40 MG/0.4 ML SQ SCH (17:36)
[2020-01-23 17:39] VITALS: BP 138/79
[2020-01-23 18:25] VITALS: BP 128/75
[2020-01-24 01:00] VITALS: BP 136/69
[2020-01-24 06:14] LABS: BASOPHILS # (AUTO) 0.05 x10^3/uL (0-0.1); BASOPHILS % (AUTO) 1 % (0-1); EOSINOPHILS # (AUTO) 0.17 x10^3/uL (0-0.4); EOSINOPHILS % (AUTO) 3 % (1-7); LYMPHOCYTES # (AUTO) 1.66 x10^3/uL (1-3.4); LYMPHOCYTES % (AUTO) 29 % (22-44); MD NO; MEAN CORPUSCULAR HEMOGLOBIN 23.7 pg (27.0-34.8); MEAN CORPUSCULAR HGB CONC 31.6 g/dL (32.4-35.8); MEAN CORPUSCULAR VOLUME 75.2 fL (80-100); MEAN PLATELET VOLUME 9.3 fL (7.4-10.4); MONOCYTES # (AUTO) 0.47 x10^3/uL (0.2-0.8); MONOCYTES % (AUTO) 8 % (2-9); NEUTROPHILS % (AUTO) 58 % (42-75); PLATELET COUNT 146 x10^3/uL (130-400); RED BLOOD COUNT 4.08 x10^6/uL (3.82-5.3); RED CELL DISTRIBUTION WIDTH 19.2 % (9.6-15.2)
[2020-01-24 06:17] LABS: ALANINE AMINOTRANSFERASE 62 U/L (12-78); ALBUMIN 2.4 g/dL (3.4-5.0); ANION GAP 5 mmol/L (5-15); CALCIUM 8.1 mg/dL (8.5-10.1); CHLORIDE 107 mmol/L (98-107); CREATININE 0.96 mg/dL (0.55-1.02)
[2020-01-24 06:19] LABS: ALKALINE PHOSPHATASE 217 U/L (45-117); BILIRUBIN,TOTAL 0.8 mg/dL (0.2-1.0); TOTAL PROTEIN 6.4 g/dL (6.4-8.2)
[2020-01-24] MEDS: METOPROLOL TARTRATE 25 MG TAB PO SCH ×2 (06:33→17:57)
[2020-01-24 07:01] VITALS: BP 128/81
[2020-01-24] MEDS: MULTIVITAMIN 1 TABLET PO SCH (09:43)
[2020-01-24] MEDS: FUROSEMIDE 20 MG TABLET PO SCH (09:43)
[2020-01-24] MEDS: SPIRONOLACTONE 50 MG TABLET PO SCH (09:43)
[2020-01-24] MEDS: PANTOPROZOLE 40MG TABLET PO SCH (09:43)
[2020-01-24] MEDS: RIFAXIMIN 550 MG TABLET PO SCH ×2 (09:43→20:01)
[2020-01-24] MEDS: ESCITALOPRAM 10MG TABLET PO SCH (09:43)
[2020-01-24] MEDS: LACTULOSE 20 GM/30 ML UDC PO SCH ×9 (09:44→22:18)
[2020-01-24] MEDS: ROPINIROLE 1MG TABLET PO SCH ×3 (11:25→20:01)
[2020-01-24] MEDS: TOPIRAMATE 25 MG TABLET PO SCH ×2 (11:26→20:01)
[2020-01-24 12:04] VITALS: BP 137/93
[2020-01-24] MEDS: OXYcodone IR 5MG TABLET PO PRN (16:27)
[2020-01-24 17:54] VITALS: BP 145/80
[2020-01-24 18:34] VITALS: BP 159/87
[2020-01-24] MEDS: ENOXAPARIN 40 MG/0.4 ML SQ SCH (18:35)
[2020-01-25 00:31] VITALS: BP 147/83
[2020-01-25] MEDS: LACTULOSE 20 GM/30 ML UDC PO SCH ×9 (02:00→21:11)
[2020-01-25] MEDS: METOPROLOL TARTRATE 25 MG TAB PO SCH ×2 (05:41→17:11)
[2020-01-25 06:52] LABS: BASOPHILS # (AUTO) 0.04 x10^3/uL (0-0.1); BASOPHILS % (AUTO) 1 % (0-1); EOSINOPHILS # (AUTO) 0.12 x10^3/uL (0-0.4); EOSINOPHILS % (AUTO) 2 % (1-7); LYMPHOCYTES # (AUTO) 2.13 x10^3/uL (1-3.4); LYMPHOCYTES % (AUTO) 30 % (22-44); MD NO; MEAN CORPUSCULAR HEMOGLOBIN 23.5 pg (27.0-34.8); MEAN CORPUSCULAR HGB CONC 31.1 g/dL (32.4-35.8); MEAN CORPUSCULAR VOLUME 75.7 fL (80-100); MEAN PLATELET VOLUME 9.7 fL (7.4-10.4); MONOCYTES # (AUTO) 0.53 x10^3/uL (0.2-0.8); MONOCYTES % (AUTO) 7 % (2-9); NEUTROPHILS # (AUTO) 4.32 x10^3/uL (1.8-6.8); NEUTROPHILS % (AUTO) 61 % (42-75); PLATELET COUNT 160 x10^3/uL (130-400); RED BLOOD COUNT 4.21 x10^6/uL (3.82-5.3); RED CELL DISTRIBUTION WIDTH 19.5 % (9.6-15.2)
[2020-01-25 07:01] LABS: CHLORIDE 106 mmol/L (98-107)
[2020-01-25 07:08] LABS: ANION GAP 7 mmol/L (5-15); CALCIUM 8.2 mg/dL (8.5-10.1); CREATININE 0.92 mg/dL (0.55-1.02)
[2020-01-25 07:09] LABS: ALANINE AMINOTRANSFERASE 63 U/L (12-78); ALBUMIN 2.5 g/dL (3.4-5.0); ALKALINE PHOSPHATASE 233 U/L (45-117); BILIRUBIN,TOTAL 0.8 mg/dL (0.2-1.0); TOTAL PROTEIN 6.6 g/dL (6.4-8.2)
[2020-01-25 08:09] VITALS: BP 156/80
[2020-01-25] MEDS: SPIRONOLACTONE 50 MG TABLET PO SCH (09:00)
[2020-01-25] MEDS: ESCITALOPRAM 10MG TABLET PO SCH (09:48)
[2020-01-25] MEDS: ROPINIROLE 1MG TABLET PO SCH ×3 (09:50→21:11)
[2020-01-25] MEDS: FUROSEMIDE 20 MG TABLET PO SCH (09:50)
[2020-01-25] MEDS: RIFAXIMIN 550 MG TABLET PO SCH ×2 (09:50→21:00)
[2020-01-25] MEDS: TOPIRAMATE 25 MG TABLET PO SCH ×2 (09:50→21:11)
[2020-01-25] MEDS: MULTIVITAMIN 1 TABLET PO SCH (09:50)
[2020-01-25] MEDS: PANTOPROZOLE 40MG TABLET PO SCH (09:51)
[2020-01-25 13:44] VITALS: BP 133/75
[2020-01-25] MEDS ORDERED: LIDOCAINE 1%, 10ML ONE (15:14)
[2020-01-25 17:08] VITALS: BP 117/76
[2020-01-25 17:18] LABS: CELLS COUNTED 76
[2020-01-25] MEDS: ENOXAPARIN 40 MG/0.4 ML SQ SCH (17:28)
[2020-01-25 19:43] VITALS: BP 130/83
[2020-01-26 00:36] VITALS: BP 136/77
[2020-01-26 05:42] VITALS: BP 146/90
[2020-01-26] MEDS: METOPROLOL TARTRATE 25 MG TAB PO SCH ×2 (05:44→18:31)
[2020-01-26 07:35] VITALS: BP 114/73
[2020-01-26] MEDS: TOPIRAMATE 25 MG TABLET PO SCH ×2 (10:36→21:05)
[2020-01-26] MEDS: LACTULOSE 20 GM/30 ML UDC PO SCH ×3 (10:36→20:28)
[2020-01-26] MEDS: ESCITALOPRAM 10MG TABLET PO SCH (10:36)
[2020-01-26] MEDS: RIFAXIMIN 550 MG TABLET PO SCH ×2 (10:36→21:05)
[2020-01-26] MEDS: ROPINIROLE 1MG TABLET PO SCH ×3 (10:36→21:05)
[2020-01-26] MEDS: FUROSEMIDE 20 MG TABLET PO SCH (10:37)
[2020-01-26] MEDS: PANTOPROZOLE 40MG TABLET PO SCH (10:37)
[2020-01-26] MEDS: SPIRONOLACTONE 50 MG TABLET PO SCH (10:37)
[2020-01-26] MEDS: MULTIVITAMIN 1 TABLET PO SCH (10:37)
[2020-01-26 12:28] VITALS: BP 143/81
[2020-01-26] MEDS: ENOXAPARIN 40 MG/0.4 ML SQ SCH (18:31)
[2020-01-26 20:43] VITALS: BP 138/90
[2020-01-27 01:25] VITALS: BP 160/87
[2020-01-27] MEDS: METOPROLOL TARTRATE 25 MG TAB PO SCH ×2 (05:30→17:15)
[2020-01-27 07:25] VITALS: BP 118/73
[2020-01-27 07:27] LABS: BASOPHILS # (AUTO) 0.03 x10^3/uL (0-0.1); BASOPHILS % (AUTO) 1 % (0-1); EOSINOPHILS # (AUTO) 0.06 x10^3/uL (0-0.4); EOSINOPHILS % (AUTO) 1 % (1-7); LYMPHOCYTES # (AUTO) 1.43 x10^3/uL (1-3.4); LYMPHOCYTES % (AUTO) 26 % (22-44); MD NO; MEAN CORPUSCULAR HEMOGLOBIN 23.4 pg (27.0-34.8); MEAN CORPUSCULAR HGB CONC 31.1 g/dL (32.4-35.8); MEAN CORPUSCULAR VOLUME 75.3 fL (80-100); MEAN PLATELET VOLUME 9.3 fL (7.4-10.4); MONOCYTES # (AUTO) 0.45 x10^3/uL (0.2-0.8); MONOCYTES % (AUTO) 8 % (2-9); NEUTROPHILS # (AUTO) 3.56 x10^3/uL (1.8-6.8); NEUTROPHILS % (AUTO) 64 % (42-75); PLATELET COUNT 180 x10^3/uL (130-400); RED BLOOD COUNT 4.41 x10^6/uL (3.82-5.3); RED CELL DISTRIBUTION WIDTH 19.4 % (9.6-15.2)
[2020-01-27 07:35] LABS: ALANINE AMINOTRANSFERASE 47 U/L (12-78); ALBUMIN 2.3 g/dL (3.4-5.0); ANION GAP 8 mmol/L (5-15); CALCIUM 8.1 mg/dL (8.5-10.1); CHLORIDE 108 mmol/L (98-107); CREATININE 1.02 mg/dL (0.55-1.02)
[2020-01-27 07:37] LABS: ALKALINE PHOSPHATASE 213 U/L (45-117); BILIRUBIN,TOTAL 0.7 mg/dL (0.2-1.0); TOTAL PROTEIN 6.3 g/dL (6.4-8.2)
[2020-01-27] MEDS: LACTULOSE 20 GM/30 ML UDC PO SCH ×3 (08:57→20:09)
[2020-01-27] MEDS: FUROSEMIDE 20 MG TABLET PO SCH (08:58)
[2020-01-27] MEDS: ESCITALOPRAM 10MG TABLET PO SCH (08:58)
[2020-01-27] MEDS: MULTIVITAMIN 1 TABLET PO SCH (08:58)
[2020-01-27] MEDS: RIFAXIMIN 550 MG TABLET PO SCH ×2 (08:58→20:09)
[2020-01-27] MEDS: ROPINIROLE 1MG TABLET PO SCH ×3 (08:58→20:09)
[2020-01-27] MEDS: TOPIRAMATE 25 MG TABLET PO SCH ×2 (08:58→20:09)
[2020-01-27] MEDS: PANTOPROZOLE 40MG TABLET PO SCH (08:58)
[2020-01-27] MEDS: SPIRONOLACTONE 50 MG TABLET PO SCH (08:59)
[2020-01-27] MEDS: OXYcodone IR 5MG TABLET PO PRN ×3 (10:08→23:06)
[2020-01-27 14:27] VITALS: BP 118/77
[2020-01-27] MEDS: ENOXAPARIN 40 MG/0.4 ML SQ SCH (17:14)
[2020-01-27 17:15] VITALS: BP 137/88
[2020-01-27 19:21] VITALS: BP 108/72
[2020-01-27 22:23] VITALS: BP 135/85
[2020-01-28 03:50] VITALS: BP 138/86
[2020-01-28 06:07] VITALS: BP 116/78
[2020-01-28] MEDS: OXYcodone IR 5MG TABLET PO PRN ×3 (06:09→23:03)
[2020-01-28] MEDS: METOPROLOL TARTRATE 25 MG TAB PO SCH ×2 (06:10→16:57)
[2020-01-28 08:59] LABS: BASOPHILS # (AUTO) 0.04 x10^3/uL (0-0.1); BASOPHILS % (AUTO) 1 % (0-1); EOSINOPHILS # (AUTO) 0.12 x10^3/uL (0-0.4); EOSINOPHILS % (AUTO) 2 % (1-7); LYMPHOCYTES # (AUTO) 2.19 x10^3/uL (1-3.4); LYMPHOCYTES % (AUTO) 33 % (22-44); MD NO; MEAN CORPUSCULAR HEMOGLOBIN 23.3 pg (27.0-34.8); MEAN CORPUSCULAR HGB CONC 30.9 g/dL (32.4-35.8); MEAN CORPUSCULAR VOLUME 75.5 fL (80-100); MEAN PLATELET VOLUME 8.8 fL (7.4-10.4); MONOCYTES # (AUTO) 0.54 x10^3/uL (0.2-0.8); MONOCYTES % (AUTO) 8 % (2-9); NEUTROPHILS # (AUTO) 3.74 x10^3/uL (1.8-6.8); NEUTROPHILS % (AUTO) 56 % (42-75); PLATELET COUNT 195 x10^3/uL (130-400); RED BLOOD COUNT 4.53 x10^6/uL (3.82-5.3); RED CELL DISTRIBUTION WIDTH 19.5 % (9.6-15.2)
[2020-01-28 09:08] LABS: ALANINE AMINOTRANSFERASE 45 U/L (12-78); ALBUMIN 2.3 g/dL (3.4-5.0); ANION GAP 6 mmol/L (5-15); CALCIUM 7.9 mg/dL (8.5-10.1); CHLORIDE 108 mmol/L (98-107)
[2020-01-28 09:10] LABS: ALKALINE PHOSPHATASE 193 U/L (45-117); BILIRUBIN,TOTAL 0.7 mg/dL (0.2-1.0); CREATININE 0.97 mg/dL (0.55-1.02); TOTAL PROTEIN 6.3 g/dL (6.4-8.2)
[2020-01-28] MEDS: LACTULOSE 20 GM/30 ML UDC PO SCH ×3 (09:18→21:59)
[2020-01-28] MEDS: ESCITALOPRAM 10MG TABLET PO SCH (09:18)
[2020-01-28] MEDS: FUROSEMIDE 20 MG TABLET PO SCH (09:18)
[2020-01-28] MEDS: PANTOPROZOLE 40MG TABLET PO SCH (09:18)
[2020-01-28] MEDS: RIFAXIMIN 550 MG TABLET PO SCH ×2 (09:18→21:59)
[2020-01-28] MEDS: MULTIVITAMIN 1 TABLET PO SCH (09:18)
[2020-01-28] MEDS: SPIRONOLACTONE 50 MG TABLET PO SCH (09:18)
[2020-01-28] MEDS: TOPIRAMATE 25 MG TABLET PO SCH ×2 (09:23→21:59)
[2020-01-28] MEDS: ROPINIROLE 1MG TABLET PO SCH ×3 (09:23→21:58)
[2020-01-28 12:12] VITALS: BP 111/75
[2020-01-28] MEDS: ENOXAPARIN 40 MG/0.4 ML SQ SCH (16:57)
[2020-01-28] MEDS: CALCIUM CARBONATE 500 MG TAB.CHEW PO PRN ×2 (16:57→22:04)
[2020-01-28 19:19] VITALS: BP 113/70
[2020-01-28] MEDS: ONDANSETRON 2MG/ML, 2ML IVPush PRN (22:23)
[2020-01-29] VITALS (9 sets, daily range): BP systolic 74–135; BP diastolic 54–81
[2020-01-29] MEDS: TIZANIDINE 4MG TABLET PO PRN (03:09)
[2020-01-29] MEDS: SODIUM CHLORIDE 0.9% 1,000 ML IV SCH ×2 (05:00→07:28)
[2020-01-29] MEDS ORDERED: SODIUM CHLORIDE 0.9% 250 ML IV SCH (05:00)
[2020-01-29] MEDS ORDERED: ALBUMIN HUMAN 25% 100 ML IV ONE (05:00)
[2020-01-29 05:08] LABS: BASOPHILS % (AUTO) 0 % (0-1); EOSINOPHILS # (AUTO) 0.11 x10^3/uL (0-0.4); EOSINOPHILS % (AUTO) 2 % (1-7); LYMPHOCYTES % (AUTO) 34 % (22-44); MD NO; MEAN CORPUSCULAR HEMOGLOBIN 23.8 pg (27.0-34.8); MEAN CORPUSCULAR VOLUME 74.3 fL (80-100); MEAN PLATELET VOLUME 9.1 fL (7.4-10.4); MONOCYTES # (AUTO) 0.38 x10^3/uL (0.2-0.8); MONOCYTES % (AUTO) 7 % (2-9); NEUTROPHILS # (AUTO) 3.13 x10^3/uL (1.8-6.8); NEUTROPHILS % (AUTO) 57 % (42-75); PLATELET COUNT 154 x10^3/uL (130-400); RED BLOOD COUNT 3.88 x10^6/uL (3.82-5.3); RED CELL DISTRIBUTION WIDTH 19.3 % (9.6-15.2)
[2020-01-29 05:18] LABS: ALANINE AMINOTRANSFERASE 38 U/L (12-78); ALBUMIN 2.1 g/dL (3.4-5.0); ANION GAP 6 mmol/L (5-15); CALCIUM 7.9 mg/dL (8.5-10.1); CHLORIDE 108 mmol/L (98-107); CREATININE 1.12 mg/dL (0.55-1.02)
[2020-01-29 05:21] LABS: ALKALINE PHOSPHATASE 161 U/L (45-117); BILIRUBIN,TOTAL 0.5 mg/dL (0.2-1.0); TOTAL PROTEIN 5.8 g/dL (6.4-8.2)
[2020-01-29] MEDS: METOPROLOL TARTRATE 25 MG TAB PO SCH ×2 (06:00→16:37)
[2020-01-29] MEDS: SPIRONOLACTONE 50 MG TABLET PO SCH (07:26)
[2020-01-29] MEDS: FUROSEMIDE 20 MG TABLET PO SCH (07:26)
[2020-01-29] MEDS: ESCITALOPRAM 10MG TABLET PO SCH (07:32)
[2020-01-29] MEDS: RIFAXIMIN 550 MG TABLET PO SCH ×2 (07:32→22:24)
[2020-01-29] MEDS: PANTOPROZOLE 40MG TABLET PO SCH (07:32)
[2020-01-29] MEDS: LACTULOSE 20 GM/30 ML UDC PO SCH ×3 (07:32→22:24)
[2020-01-29] MEDS: ROPINIROLE 1MG TABLET PO SCH ×3 (07:33→22:25)
[2020-01-29] MEDS: TOPIRAMATE 25 MG TABLET PO SCH ×2 (07:33→22:25)
[2020-01-29] MEDS: MULTIVITAMIN 1 TABLET PO SCH (07:33)
[2020-01-29] MEDS: LIDODERM 5% PATCH TD SCH (14:56)
[2020-01-29] MEDS: LIDODERM REMOVE PATCH NOTE XX SCH (14:57)
[2020-01-29] MEDS: GABAPENTIN 100 MG CAPSULE PO SCH ×2 (15:15→22:25)
[2020-01-29] MEDS: ENOXAPARIN 40 MG/0.4 ML SQ SCH (16:37)
[2020-01-29] MEDS: OXYcodone IR 5MG TABLET PO PRN (20:46)
[2020-01-29] MEDS: CALCIUM CARBONATE 500 MG TAB.CHEW PO PRN (22:24)
[2020-01-30] VITALS (10 sets, daily range): BP systolic 98–133; BP diastolic 60–93
[2020-01-30] MEDS: LIDODERM REMOVE PATCH NOTE XX SCH (04:01)
[2020-01-30] MEDS: OXYcodone IR 5MG TABLET PO PRN ×2 (04:02→11:22)
[2020-01-30 04:40] LABS: ALBUMIN 2.6 g/dL (3.4-5.0); ANION GAP 7 mmol/L (5-15); CALCIUM 8.3 mg/dL (8.5-10.1); CHLORIDE 108 mmol/L (98-107)
[2020-01-30 04:43] LABS: ALANINE AMINOTRANSFERASE 38 U/L (12-78); ALKALINE PHOSPHATASE 154 U/L (45-117); BILIRUBIN,TOTAL 0.5 mg/dL (0.2-1.0); CREATININE 0.94 mg/dL (0.55-1.02); TOTAL PROTEIN 6.6 g/dL (6.4-8.2)
[2020-01-30] MEDS: METOPROLOL TARTRATE 25 MG TAB PO SCH ×2 (05:58→17:15)
[2020-01-30] MEDS: GABAPENTIN 100 MG CAPSULE PO SCH ×3 (05:58→15:48)
[2020-01-30] MEDS: LACTULOSE 20 GM/30 ML UDC PO SCH ×3 (08:27→15:48)
[2020-01-30] MEDS: ESCITALOPRAM 10MG TABLET PO SCH (08:29)
[2020-01-30] MEDS: MULTIVITAMIN 1 TABLET PO SCH (08:29)
[2020-01-30] MEDS: ROPINIROLE 1MG TABLET PO SCH ×3 (08:30→21:00)
[2020-01-30] MEDS: RIFAXIMIN 550 MG TABLET PO SCH ×2 (08:30→21:00)
[2020-01-30] MEDS: PANTOPROZOLE 40MG TABLET PO SCH (08:30)
[2020-01-30] MEDS: TOPIRAMATE 25 MG TABLET PO SCH ×2 (08:30→21:00)
[2020-01-30] MEDS: ONDANSETRON 2MG/ML, 2ML IVPush PRN (08:43)
[2020-01-30] MEDS ORDERED: FUROSEMIDE 20 MG TABLET PO SCH (09:00)
[2020-01-30] MEDS ORDERED: SPIRONOLACTONE 25 MG TABLET PO SCH (09:00)
[2020-01-30] MEDS ORDERED: LACT20SO13 PO (14:37)
[2020-01-30] MEDS ORDERED: RIFA550T4 PO (14:37)
[2020-01-30] MEDS: LIDODERM 5% PATCH TD SCH (15:48)
[2020-01-30] MEDS: TIZANIDINE 4MG TABLET PO PRN (15:48)
[2020-01-30 16:54] LABS: BASOPHILS # (AUTO) 0.03 x10^3/uL (0-0.1); BASOPHILS % (AUTO) 1 % (0-1); EOSINOPHILS # (AUTO) 0.08 x10^3/uL (0-0.4); EOSINOPHILS % (AUTO) 2 % (1-7); LYMPHOCYTES # (AUTO) 1.43 x10^3/uL (1-3.4); LYMPHOCYTES % (AUTO) 28 % (22-44); MD NO; MEAN CORPUSCULAR HEMOGLOBIN 23.8 pg (27.0-34.8); MEAN CORPUSCULAR HGB CONC 31.9 g/dL (32.4-35.8); MEAN CORPUSCULAR VOLUME 74.7 fL (80-100); MEAN PLATELET VOLUME 9.3 fL (7.4-10.4); MONOCYTES # (AUTO) 0.43 x10^3/uL (0.2-0.8); MONOCYTES % (AUTO) 9 % (2-9); NEUTROPHILS # (AUTO) 3.09 x10^3/uL (1.8-6.8); NEUTROPHILS % (AUTO) 61 % (42-75); PLATELET COUNT 152 x10^3/uL (130-400); RED BLOOD COUNT 3.82 x10^6/uL (3.82-5.3); RED CELL DISTRIBUTION WIDTH 19.6 % (9.6-15.2)
[2020-01-30 17:01] LABS: ALANINE AMINOTRANSFERASE 34 U/L (12-78); ALBUMIN 2.4 g/dL (3.4-5.0); ANION GAP 7 mmol/L (5-15); CALCIUM 7.9 mg/dL (8.5-10.1); CHLORIDE 109 mmol/L (98-107); CREATININE 0.95 mg/dL (0.55-1.02)
[2020-01-30 17:03] LABS: ALKALINE PHOSPHATASE 141 U/L (45-117); BILIRUBIN,TOTAL 0.5 mg/dL (0.2-1.0)
[2020-01-30] MEDS: SODIUM CHLORIDE 0.9% 1,000 ML IV SCH (17:30)
[2020-01-30] MEDS ORDERED: LACTULOSE 3.3 GM/5 ML ORAL.SOL RC ONE ×3 (17:30→19:00)
[2020-01-30 17:58] LABS: AMPHETAMINE SCREEN, URINE Negative (Negative); BARBITURATE SCREEN, URINE Negative (Negative); BENZODIAZEPINE SCREEN, URINE Negative (Negative); CANNABINOID SCREEN, URINE Positive (Negative); COCAINE SCREEN, URINE Negative (Negative); METHADONE SCREEN, URINE Negative (Negative); OPIATE SCREEN, URINE Negative (Negative)
[2020-01-30] MEDS: ENOXAPARIN 40 MG/0.4 ML SQ SCH (22:45)
[2020-01-31 01:20] VITALS: BP 109/70
[2020-01-31] MEDS: OXYcodone IR 5MG TABLET PO PRN (01:45)
[2020-01-31 06:18] VITALS: BP 136/91
[2020-01-31] MEDS: METOPROLOL TARTRATE 25 MG TAB PO SCH ×2 (06:19→17:32)
[2020-01-31] MEDS: SODIUM CHLORIDE 0.9% 1,000 ML IV SCH ×2 (06:22)
[2020-01-31 07:34] LABS: ALBUMIN 2.3 g/dL (3.4-5.0); ANION GAP 4 mmol/L (5-15); CALCIUM 7.7 mg/dL (8.5-10.1); CHLORIDE 110 mmol/L (98-107)
[2020-01-31 07:38] LABS: ALANINE AMINOTRANSFERASE 33 U/L (12-78); ALKALINE PHOSPHATASE 133 U/L (45-117); BASOPHILS # (AUTO) 0.03 x10^3/uL (0-0.1); BASOPHILS % (AUTO) 1 % (0-1); BILIRUBIN,TOTAL 0.7 mg/dL (0.2-1.0); CREATININE 0.82 mg/dL (0.55-1.02); EOSINOPHILS # (AUTO) 0.16 x10^3/uL (0-0.4); EOSINOPHILS % (AUTO) 3 % (1-7); LYMPHOCYTES # (AUTO) 1.29 x10^3/uL (1-3.4); LYMPHOCYTES % (AUTO) 23 % (22-44); MD NO; MEAN CORPUSCULAR HEMOGLOBIN 23.7 pg (27.0-34.8); MEAN CORPUSCULAR HGB CONC 31.2 g/dL (32.4-35.8); MEAN CORPUSCULAR VOLUME 75.9 fL (80-100); MEAN PLATELET VOLUME 9.3 fL (7.4-10.4); MONOCYTES # (AUTO) 0.53 x10^3/uL (0.2-0.8); MONOCYTES % (AUTO) 9 % (2-9); NEUTROPHILS # (AUTO) 3.73 x10^3/uL (1.8-6.8); NEUTROPHILS % (AUTO) 65 % (42-75); PLATELET COUNT 134 x10^3/uL (130-400); RED BLOOD COUNT 3.85 x10^6/uL (3.82-5.3); RED CELL DISTRIBUTION WIDTH 19.5 % (9.6-15.2); TOTAL PROTEIN 5.8 g/dL (6.4-8.2)
[2020-01-31] MEDS: RIFAXIMIN 550 MG TABLET PO SCH ×2 (08:20→20:27)
[2020-01-31] MEDS: TOPIRAMATE 25 MG TABLET PO SCH ×2 (08:20→20:27)
[2020-01-31] MEDS: ROPINIROLE 1MG TABLET PO SCH ×3 (08:21→20:27)
[2020-01-31] MEDS: ESCITALOPRAM 10MG TABLET PO SCH (08:21)
[2020-01-31] MEDS: PANTOPROZOLE 40MG TABLET PO SCH (08:21)
[2020-01-31] MEDS: MULTIVITAMIN 1 TABLET PO SCH (08:21)
[2020-01-31] MEDS ORDERED: LACTULOSE 20 GM/30 ML UDC PO SCH (09:00)
[2020-01-31] MEDS: ONDANSETRON 2MG/ML, 2ML IVPush PRN ×3 (11:41→22:44)
[2020-01-31] MEDS: LACTULOSE 20 GM/30 ML UDC PO SCH ×3 (12:00→22:43)
[2020-01-31 14:06] VITALS: BP 140/93
[2020-01-31] MEDS: LIDODERM REMOVE PATCH NOTE XX SCH (15:00)
[2020-01-31] MEDS: LIDODERM 5% PATCH TD SCH (17:00)
[2020-01-31] MEDS: ENOXAPARIN 40 MG/0.4 ML SQ SCH (20:27)
[2020-01-31 21:30] VITALS: BP 125/90
[2020-01-31] MEDS: CALCIUM CARBONATE 500 MG TAB.CHEW PO PRN (22:29)
[2020-02-01] MEDS: LIDODERM 5% PATCH TD SCH (00:08)
[2020-02-01 03:30] VITALS: BP 160/90
[2020-02-01] MEDS: LACTULOSE 20 GM/30 ML UDC PO SCH ×3 (06:00→11:00)
[2020-02-01] MEDS: METOPROLOL TARTRATE 25 MG TAB PO SCH (06:35)
[2020-02-01] MEDS: ONDANSETRON 2MG/ML, 2ML IVPush PRN ×2 (06:35→13:32)
[2020-02-01 07:50] VITALS: BP 138/85
[2020-02-01] MEDS: TOPIRAMATE 25 MG TABLET PO SCH (08:32)
[2020-02-01] MEDS: ROPINIROLE 1MG TABLET PO SCH (08:33)
[2020-02-01] MEDS: ESCITALOPRAM 10MG TABLET PO SCH (08:33)
[2020-02-01] MEDS: MULTIVITAMIN 1 TABLET PO SCH (08:34)
[2020-02-01] MEDS: RIFAXIMIN 550 MG TABLET PO SCH (08:34)
[2020-02-01] MEDS: PANTOPROZOLE 40MG TABLET PO SCH (08:34)
[2020-02-01 08:35] LABS: ALBUMIN 2.6 g/dL (3.4-5.0); ANION GAP 4 mmol/L (5-15); CHLORIDE 112 mmol/L (98-107); CREATININE 0.92 mg/dL (0.55-1.02)
[2020-02-01 08:38] LABS: ALANINE AMINOTRANSFERASE 35 U/L (12-78); ALKALINE PHOSPHATASE 141 U/L (45-117); BILIRUBIN,TOTAL 0.6 mg/dL (0.2-1.0); TOTAL PROTEIN 6.6 g/dL (6.4-8.2)
[2020-02-01] MEDS ORDERED: FUROSEMIDE 20 MG TABLET PO SCH (09:00)
[2020-02-01] MEDS ORDERED: SPIRONOLACTONE 50 MG TABLET PO SCH (09:00)
[2020-02-01 14:21] VITALS: BP 151/85
[2020-02-01] MEDS: LIDODERM REMOVE PATCH NOTE XX SCH (15:00)
[2020-02-01] MEDS ORDERED: FLU VACC QS2019-20 36MOS UP/PF 0.5 ML IM-VACC ONE (15:30)
== END 2020-02-01 16:37 | disposition home or self-care (01) | DRG 441 ==
LOC: ED 14:40 → EDIP 16:03 → 4WST 17:47 → 3N 01-27 22:15 → DCLOUNGE 02-01 16:21
PROVIDERS: ADMIT Internal Medicine Infectious Disease; ATTEND Family Medicine
DX: K72.90 Hepatic failure, unspecified without coma (principal); N17.0 Acute kidney failure with tubular necrosis; E44.0 Moderate protein-calorie malnutrition; E11.9 Type 2 diabetes mellitus without complications; K21.9 Gastro-esophageal reflux disease without esophagitis; F17.210 Nicotine dependence, cigarettes, uncomplicated; M54.9 Dorsalgia, unspecified; G89.29 Other chronic pain; G43.909 Migraine, unspecified, not intractable, without status migrainosus; G47.30 Sleep apnea, unspecified; I11.0 Hypertensive heart disease with heart failure; I50.9 Heart failure, unspecified; F32.9 Major depressive disorder, single episode, unspecified; Z82.49 Family history of ischemic heart disease and other diseases of the circulatory system; Z90.49 Acquired absence of other specified parts of digestive tract; Z83.438 Family history of other disorder of lipoprotein metabolism and other lipidemia; Z83.3 Family history of diabetes mellitus; Z88.5 Allergy status to narcotic agent; Z88.8 Allergy status to other drugs, medicaments and biological substances; Z91.011 Allergy to milk products; Z68.22 Body mass index [BMI] 22.0-22.9, adult; Z79.899 Other long term (current) drug therapy; Z84.1 Family history of disorders of kidney and ureter; Z79.891 Long term (current) use of opiate analgesic; Z98.84 Bariatric surgery status
CPT/HCPCS: 32555; 36415; 36600; 74018; 89051; 99285; J3490; 70450; 71045; 71046; 80053; 80307; 81001; 82140; 82803; 82962; 83605; 83615; 83690; 84157; 84443; 85025; 86592; 87070; 87086; 87205; 88112; 88305; 90686; 95819; G0378; J1650; J2405; P9047; J2270; J7030; J7050

== ENCOUNTER → 2020-07-12 | Outpatient (CLI) | payer MEDICARE ==
[~2020-07-12] MED LIST changes: +LIDOCAINE 1%, 10ML ONE; +MORP-59 PO; +MULT-449 PO; -MULT1TAB60 PO; -OXYC15TA PO; +OXYC15TA3 PO; +OXYC5TAB2 PO
== END | disposition home or self-care (01) ==
LOC: RAD 12:38
PROVIDERS: ATTEND Nurse Practitioner Family
DX: J90 Pleural effusion, not elsewhere classified (principal); E11.9 Type 2 diabetes mellitus without complications; Z88.5 Allergy status to narcotic agent; Z88.8 Allergy status to other drugs, medicaments and biological substances; Z79.899 Other long term (current) drug therapy; Z72.89 Other problems related to lifestyle; Z87.891 Personal history of nicotine dependence; Z82.49 Family history of ischemic heart disease and other diseases of the circulatory system; Z83.3 Family history of diabetes mellitus
CPT/HCPCS: 32555

== ENCOUNTER 2020-10-14 13:21 | Outpatient (CLI) | payer MEDICARE ==
[~2020-10-14 13:21] MED LIST changes: -LIDOCAINE 1%, 10ML ONE; -PANT20TA3 PO; +PANT20TA4 PO; -PANT40TA5 PO; +PANT40TA6 PO
[2020-10-14] MEDS ORDERED: LIDOCAINE 1%, 10ML ONE ×2 (14:47→15:20)
== END 2020-10-14 23:59 | disposition home or self-care (01) ==
LOC: RAD 13:21
PROVIDERS: ATTEND Nurse Practitioner Family
DX: K70.31 Alcoholic cirrhosis of liver with ascites (principal); J90 Pleural effusion, not elsewhere classified
CPT/HCPCS: 32555; 49083; 71046